=== PATIENT | female | born 1990 | race Caucasian/White ===

== ENCOUNTER 2021-11-21 09:24 | Emergency (ER) | payer SELFPAY ==
[2021-11-21 09:24] VITALS: BP 143/74; PULSE 64; RESP 16; TEMP 36.6; O2SAT 99; BMI 29.5
--- NOTE | 2021-11-21 10:12 | CT_ITS ---
STUDY: CT ABDOMEN AND PELVIS WITH CONTRAST REASON FOR EXAM: Female, 31 years old. Left lower quadrant abdominal pain. Constipation. RADIATION DOSAGE (If Supplied By Facility): CTDIvol = ( 11.09 ) mGy, DLP = ( 444.67 ) mGycm TECHNIQUE: Transaxial images were obtained from the dome of the diaphragm to the symphysis pubis without oral contrast. IV 75mL Isovue-370 was administered. Sagittal and coronal images were reconstructed. Individualized dose optimization techniques were used for this CT. COMPARISON: None. FINDINGS: The visualized lung bases are unremarkable. The visualized portions of the heart are within normal limits. Normal liver. Normal gallbladder and extrahepatic biliary system. Normal spleen. Normal pancreas. Normal bilateral adrenal glands. Normal right kidney. Normal left kidney. Normal visualized stomach. Normal small intestine. Normal colon. The appendix is visualized and appears normal. Normal abdominal aorta. Normal inferior vena cava. Normal retroperitoneum. Normal urinary bladder. Normal abdominal wall. Normal osseous structures. CT/Abdomen/Pelvis W IV Cont ONLY IMPRESSION: Normal enhanced CT of the abdomen and pelvis. Electronically Signed: Kwasi Silvestre MD at 12:11 EDT ,
--- NOTE | 2021-11-21 10:13 | ED.VIS.GI ---
HPI HPI - GI History of Present Illness Chief Complaint: Abd Pain Narrative Narrative: 31-year-old female presenting with left lower quadrant abdominal pain. She states this has been a persistent issue. Patient states that she was seen in [place] previously and had blood work which was normal. She had no imaging. She is supposed to follow-up with her primary care doctor which was given to her from the emergency room. She states that when she tried to follow-up he recommended going to the ER for a CAT scan of the abdomen pelvis. The patient states that they were sent to [place] emergency room for a second opinion. Patient also expresses that her PPI is not working. Protonix does not help with her acid reflux. She states that she has had dyspepsia. This is contributing to some nausea. Patient also reports that she is not having significant bowel movements as having small hard stools. PFSH PFSH Home Medications ondansetron 4 mg PO Q8H PRN #14 tab 11/21/21 [Rx Last Taken Unknown] sucralfate [Carafate] 10 ml PO BID #200 ml 11/21/21 [Rx Last Taken Unknown] Allergy/AdvReac Type Severity Reaction Status Date / Time Penicillins [PCN] Allergy Hives Verified 11/21/21 09:41 Surgical History no surgical history Social History Smoking Status: Unknown if ever smoked ROS ROS ED Constitutional Constitutional ED: Denies chills or fever(s) ENT ENT ED: Denies rhinorrhea or sore throat Cardiovascular Cardiovascular: Denies chest pain or palpitations Respiratory/Chest Respiratory/Chest: Denies dyspnea or sputum Gastrointestinal Gastrointestinal: Reports abdominal pain, constipation, nausea and vomiting; Denies diarrhea Genitourinary Genitourinary ED: Denies dysuria Musculoskeletal Musculoskeletal: Denies myalgias Integumentary Denies rash Neurologic Neurologic: Denies headache(s) Psychiatric Psychiatric: Denies anxiety or depression EXAM Physical Exam Const Vital Signs: 11/21/21 09:24 11/21/21 11:58 Temperature 97.8 F Temperature Source Temporal Pulse Rate 64 87 Respiratory Rate 16 16 Blood Pressure 143/74 H 138/79 H Blood Pressure Mean 97 98 Pulse Ox 99 99 Oxygen Delivery Method Room Air Room Air Positive well nourished General Appearance ED: NAD; Negative for pallor HEENT Reports moist mucous membranes normocephalic and atraumatic Eyes PERRL and EOMs intact bilaterally General Eye ED: Negative for pale conjunctiva or scleral icterus Neck supple Resp normal respiratory effort and clear to auscultation bilaterally Cardio regular rate and regular rhythm GI Palpation: soft and tender LLQ Back/Spine no CVA tenderness Neuro CN's II-XII intact bilaterally and moves all extremities Sensorium / Orientation: alert, oriented to person, oriented to place and oriented to time Psych mental status grossly normal Skin General Skin Exam: Negative for jaundice or pallor Lesions: no lesions Rashes: no rashes MDM MDM MDM Narrative Medical decision making narrative: HerRepeat blood work was done here today. I am unable to see the previous lab work however CBC and CMP are within normal limits. Lipase is also normal. Urinalysis negative for infection or occult blood. hCG negative. CT of the abdomen pelvis was performed with IV contrast and is negative for any acute findings. Patient is counseled of this. She requests tonics is not helping so we will start her on Carafate. She is given Zofran for home as well. She was given magnesium citrate in the ER to take when she gets home. Patient will given referral to Dr. Arredondo. Patient can return precautions and is stable for discharge at this time. Impression: 1. Nausea/vomiting 2. Constipation 3. GERD 4. Abdominal pain Lab Data Attestation: I reviewed the patient's lab results. Labs: Laboratory Results - last 24 hr 11/21/21 11/21/21 11/21/21 10:35 10:35 11:10 WBC 5.3 RBC 4.21 Hgb 12.7 Hct 37.5 MCV 89.1 MCH 30.2 MCHC 33.9 RDW Std Deviation 40.9 RDW Coeff of Jo Ann 12.5 Plt Count 221 MPV 10.6 Immature Gran % (Auto) 0.200 Neut % (Auto) 44.0 L Lymph % (Auto) 43.3 H [place] % (Auto) 11.3 H Eos % (Auto) 0.6 Baso % (Auto) 0.6 Absolute Neuts (auto) 2.3 Absolute Lymphs (auto) 2.30 Nucleated RBC % 0 Sodium 140 Potassium 3.6 Chloride 108 H Carbon Dioxide 25.0 Anion Gap 7 BUN 10 Creatinine 0.89 Estim Creat Clear Calc 76.46 Est GFR (MDRD) Af Amer 95 Est GFR (MDRD) Non-Af 79 BUN/Creatinine Ratio 11.2 Glucose 101 Calcium 9.0 Total Bilirubin 0.70 AST 11 L ALT 17 Alkaline Phosphatase 40 L Total Protein 7.1 Albumin 4.0 Globulin 3.1 Albumin/Globulin Ratio 1.3 Lipase 58 L Urine Color Yellow Urine Clarity Clear Urine pH 8.0 Ur Specific [place] 1.010 Urine Protein Negative Urine Glucose (UA) Normal Urine Ketones 15 H Urine Occult Blood Negative Urine Nitrite Negative Urine Bilirubin Negative Urine Urobilinogen Normal Ur Leukocyte Esterase Negative Urine RBC 0 SEEN Urine WBC 0 SEEN Ur Squamous Epith Cells 0 SEEN Urine Bacteria 0 SEEN Urine Mucus 0 SEEN Urine Test Negative Radiography Diagnostic Testing: Clinical Impression(s) from Imaging Studies Abdomen/Pelvis CT 11/21/21 10:12 IMPRESSION: Normal enhanced CT of the abdomen and pelvis. Electronically Signed: Kwasi Silvestre MD at 12:11 EDT Reading Location ID and State: [facility] / [place] , Service support , Discharge Plan Triage Chief Complaint: Abd Pain ED Provider: Vj Rick Dx/Rx/DC Orders Instructions: ED Abdominal Pain Unkn Cause Fem, ED GERD (Adult) Prescriptions: New sucralfate [Carafate] 100 mg/mL suspension 10 ml PO BID Qty: 200 RF: 0 ondansetron 4 mg tablet,disintegrating 4 mg PO Q8H PRN (Reason: nausea and vomiting) Qty: 14 RF: 0 Primary Care Provider: Donald Barlow Referrals: Donald Barlow DO [Primary Care Provider] - Disposition Disposition: Home, Self Care
[2021-11-21] MEDS: Ondansetron 4 MG/2 ML Vial IV (10:39)
[2021-11-21] MEDS: Morphine 4 MG/ML Syringe IV (10:39)
[2021-11-21 10:42] LABS: Absolute Neutrophil Count 2.3 X10^3/uL (2.0-7.7); Basophil# 0.03 X10^3/uL; Basophil% 0.6 % (0-1); Eosinophil# 0.03 X10^3/uL; Eosinophils% 0.6 % (0-5); Hematocrit 37.5 % (37-47); Hemoglobin 12.7 g/dL (12.0-15.0); Lymphocyte % 43.3 % (19-41); Mean Corp Hgb Conc 33.9 g/dL (32-36); Mean Corpuscular Hgb 30.2 pg (27.0-32.0); Mean Corpuscular Volume 89.1 fL (81-99); Mean Platelet Vol. 10.6 fl (6.2-12.0); Monocyte% 11.3 % (0-10); NRBC Flagged by Analyzer 0 % (0-5); Neutrophil # 2.34 X10^3/uL (2.7-7.7); Platelet Count 221 K/mm3 (150-450); RBC Distribution Width CV 12.5 % (11.6-14.6); RBC Distribution Width SD 40.9 fl (35.1-43.9); Red Blood Count 4.21 M/mm3 (4.2-5.4); White Blood Count 5.3 K/mm3 (4.4-11.0)
[2021-11-21 10:57] LABS: ALB/GLOB Ratio 1.3 RATIO (0.9-2.4); AST(SGOT) 11 U/L (15-37); Alanine Aminotransfer ALT/SGPT 17 U/L (13-56); Alkaline Phosphatase 40 U/L (45-117); Anion Gap 7 (5-15); BUN 10 mg/dL (7-18); BUN/Creat Ratio 11.2 RATIO (10-20); Chloride 108 mmol/L (98-107); Creatinine, Serum 0.89 mg/dL (0.55-1.02); EST Glomerular Filtration Rate 79 mL/min (>60); Est Glom Filt Rate - Afr Amer 95 mL/min (>60); Estimated Creatinine Clearance 76.46 ml/min; Globulin 3.1 g/dL (2.2-4.2); Glucose 101 mg/dL (74-106); Lipase 58 U/L (73-393); Potassium 3.6 mmol/L (3.5-5.1); Protein, Total 7.1 g/dL (6.4-8.2); Sodium Level 140 mmol/L (136-145)
[2021-11-21 11:19] LABS: Bacteria 0 SEEN /hpf (None Seen); Mucous, Urine 0 SEEN /hpf (<or=2+); Red Blood Cells-Urine 0 SEEN /hpf (0-5); Squamous Epithelial Cells - UA 0 SEEN /hpf (5-10); White Blood Cells 0 SEEN /hpf (0-5)
[2021-11-21 11:22] LABS: Color, Urine Yellow (Yellow); Glucose, Dipstick Normal (Normal); Ketone-Dipstick 15 mg/dl (Negative); Leukocyte Esterase-Dipstick Negative /ul (Negative); Nitrite-Dipstick Negative (Negative); Occult Blood-Urine Negative /ul (Negative); Protein-Dipstick Negative (Negative); Urine Bilirubin Dipstick Negative (Negative); Urine Clarity Clear (Clear); Urine Urobilinogen Normal (Normal)
[2021-11-21 11:41] LABS: Internal QC Validated? YES +Cl - CLEAR BKGD; Pregnancy, Urine Negative Negative
[2021-11-21 11:58] VITALS: BP 138/79; PULSE 87; RESP 16; O2SAT 99
[2021-11-21 13:30] VITALS: BP 130/84; PULSE 87; RESP 16; O2SAT 99
== END 2021-11-21 13:31 | disposition home or self-care (01) ==
PROVIDERS: Emergency Provider Student in an Organized Health Care Education/Training Program; PCP Family Medicine; Visit Provider Student in an Organized Health Care Education/Training Program
DX: R10.9 Unspecified abdominal pain (principal); K59.00 Constipation, unspecified; K21.9 Gastro-esophageal reflux disease without esophagitis; R11.2 Nausea with vomiting, unspecified
CPT/HCPCS: 74177; 80053; 81001; 81025; 83690; 85025; 96374; 96375; 99285; Q9967; A4216; J2405

== ENCOUNTER → 2021-12-26 | Outpatient (CLI) | payer OTHER, SELFPAY ==
[2021-12-26 17:15] LABS: Erythrocyte Sedimentation Rate 4 mm/hr (0-30)
[2021-12-26 17:46] LABS: CRP < 2.90 mg/L (0.0-3.0); LDH 162 U/L (84-246)
[2021-12-29 13:07] LABS: Anti-Centromere B Ab <0.2 AI (0.0-0.9); Anti-Chromatin <0.2 AI (0.0-0.9); Anti-Jo <0.2 AI (0.0-0.9); Anti-Scleroderma-70 AB <0.2 AI (0.0-0.9); RNP Ab 0.2 AI (0.0-0.9); SJOGREN'S Anti-SS-A test < 0.2 AI (0.0-0.9); SJOGREN'S Anti-SS-B test < 0.2 AI (0.0-0.9); Smith Ab <0.2 AI (0.0-0.9)
[2021-12-29 15:39] LABS: Anti-dsDNA Ab <1 IU/mL (0-9)
[2021-12-29 16:08] LABS: Endomysial Antibody IgA Negative (Negative)
[2021-12-29 17:19] LABS: Immunoglobulin A 102 mg/dL (87-352); t-Transglutaminase IgA <2 U/mL (0-3)
[2022-01-02 09:09] LABS: Cytoplasmic Ab (C-ANCA) <1:20 titer (Neg:<1:20); Immunoglobulin A 96 mg/dL (87-352); Immunoglobulin E 2 IU/mL (6-495); Immunoglobulin G 1076 mg/dL (586-1602)
[2022-01-03 15:38] LABS: Gastrin, Serum 42 pg/mL (0-115); Immunoglobulin M 89 mg/dL (26-217); Perinuclear Ab (P-ANCA) <1:20 titer (Neg:<1:20)
== END | disposition home or self-care (01) ==
PROVIDERS: PCP Family Medicine; Visit Provider Internal Medicine Gastroenterology
DX: R10.9 Unspecified abdominal pain (principal)
CPT/HCPCS: 36415; 82784; 82785; 82941; 83516; 83615; 85652; 86140; 86225; 86235; 86255; 86256

== ENCOUNTER → 2022-01-27 | Outpatient (CLI) | payer OTHER, SELFPAY ==
--- NOTE | 2022-01-27 12:47 | NM_ITS ---
CLINICAL: 31-year-old female with history of abdominal pain and chronic nausea. SEMI-SOLID PHASE 99m Tc SULFUR COLLOID GASTRIC EMPTYING STUDY COMPARISON: CT of the abdomen and pelvis report 11/21/2021 FINDINGS: The patient was administered 1.0 mCi of 99m Tc sulfur colloid mixed with oatmeal and consumed per os. Image acquisitions in the anterior projection were obtained for 60 minutes. There is prompt visualization of the stomach. There is no gastroesophageal reflux identified. First order kinetics are maintained throughout the duration of the acquisitions. The T ? emptying was calculated to be 43.57 minutes, (Normal: 12-56 minutes). NM/Gastric Emptying Study IMPRESSION: 1. NORMAL 99m Tc sulfur colloid semi-solid phase (oatmeal) gastric emptying imaging examination. A. There is normal and preserved semi-solid phase gastric emptying compared to normal controls with maintained first order kinetics throughout all components of the examination. (Pauline et al, J Nucl Med Tech 38: 186, 2010). Electronically Signed: Buck Donahue, at 16:30 EDT ,
== END | disposition home or self-care (01) ==
LOC: NM 12:45
PROVIDERS: PCP Family Medicine; Referring Provider Internal Medicine Gastroenterology; Visit Provider Internal Medicine Gastroenterology
DX: R11.0 Nausea (principal)
CPT/HCPCS: 78264; A9541

== ENCOUNTER 2022-05-12 11:26 | Day surgery (SDC) | payer OTHER, SELFPAY ==
[2022-05-12] VITALS (8 sets, daily range): BP systolic 93–123; BP diastolic 54–69; PULSE 51–78; RESP 15–16; TEMP 36.4–37.1; O2SAT 94–100; BMI 28.0
--- NOTE | 2022-05-12 11:57 | PCM.HP.BLA ---
History and Physical Date of Admission: 05/12/22 YOUSIF MADSEN, is a 31 F who presents to the office today for?Initial consult. Delores established with this clinic following ED presentation. [facility] ED presentation 11.21.21 with LLQ abdominal pain, nausea with emesis that is undigested food after many hours, dyspepsia/heartburn, small hard stools that alternate with postprandial urgent diarrhea without blood, mucous, oil. Imaging performed without acute findings; she was given Carafate, Zofran and magnesium citrate and discharged home. When she was younger she was diagnosed with GERD and started on PPI that caused her to have an increase in symptoms; famotidine BID OTC was helpful, but is no longer helpful. Sleeping with her head significantly elevated is helpful. Since ED visit she has been doing a low fat, low acid, low spice diet; this has been met with moderate success. Zofran has been effective and is being taken PRN, last needed over the weekend. Marijuana intake is 1-2 times a week, feels this helps with nausea. Home life is agreeable to her with limited stress. FH mother with metastatic ovarian cancer spreading to liver requiring surgical intervention. CT abd/pel 11.21.21 without acute or chronic findings. Exam Const General: cooperative and comfortable Nutritional Appearance: average body habitus and well nourished [facility] Head: normal to inspection Ears: hearing grossly normal bilaterally Nose: external nose normal Face and sinus: normal facial exam Mouth: oral mucosae normal Throat: posterior oropharynx normal Eyes General: appearance normal, both eyes and all related structures Neck Neck: normal visual inspection Chest Chest palpation & inspection: normal inspection of the chest and normal palpation of entire chest wall Resp Effort & Inspection: normal respiratory effort Auscultation: Bilateral: Clear to Auscultation Cardio Palpation: normal PMI Rate: regular rate Rhythm: regular rhythm GI Inspection: normal to inspection Auscultation: normal bowel sounds Percussion: normal to percussion Palpation: no hepatosplenomegaly Skin General: no rashes or lesions noted Neuro General: patient alert Extrem General: normal to inspection Psych Affect: normal affect Quality Reporting Tobacco Screening ([facility] 138) Smoking Status: Unknown if ever smoked Assessment and Plan Assessment and Plan (1) Abdominal pain: ?Status:?Acute ?Plan: We will perform a biochemical analysis to see if there is an inflammatory or autoimmune component to her abdominal pain.? The differential diagnosis at this time does include peptic ulcer disease, celiac disease, gastritis, H. pylori associated disease, atypical gastroesophageal reflux disease.? She will get an upper endoscopy to evaluate upper GI tract.? We will perform biopsy to evaluate her also for eosinophilic diseases (2) GERD (gastroesophageal reflux disease): ?Status:?Acute ?Plan: At this time we will continue famotidine based therapy until she is properly assessed with upper endoscopy. ? ? ? Orders: Orders CRP Today R10.9 - Unspecified abdominal pain ? LDH Today R10.9 - Unspecified abdominal pain ? Erythrocyte Sed Rate Today R10.9 - Unspecified abdominal pain ? PADMINI Comprehensive Panel Today R10.9 - Unspecified abdominal pain ? Calprotectin, Stool Today R10.9 - Unspecified abdominal pain ? Gastric Emptying Study Today R10.9 - Unspecified abdominal pain ? ANCA Today R10.9 - Unspecified abdominal pain ? Celiac Disease Profile Today R10.9 - Unspecified abdominal pain ? Immunoglobulin A Today R10.9 - Unspecified abdominal pain ? Immunoglobulin E Today R10.9 - Unspecified abdominal pain ? Immunoglobulin G Today R10.9 - Unspecified abdominal pain ? Immunoglobulin M Today R10.9 - Unspecified abdominal pain ? Pancreatic Elastase, Fecal Today R10.9 - Unspecified abdominal pain ? Miscellaneous Lab Procedure Today R10.9 - Unspecified abdominal pain ? Gastrin, Serum Today R10.9 - Unspecified abdominal pain ? 5-HIAA 24 HR UR Today R10.9 - Unspecified abdominal pain ? I have examined the patient and the H&P has been reviewed. There are no clinical changes since date of exam.
[2022-05-12 12:05] LABS: Internal QC Validated? YES +Cl - CLEAR BKGD; Pregnancy, Urine Negative Negative
[2022-05-12] MEDS: Lactated Ringers 1,000 ML 15 ML IV (12:30)
--- NOTE | 2022-05-12 12:30 | EGD_PTH ---
PATIENT: KELLEN MADSEN LOC: EN U#:[id number] AGE/SX: 31/F ROOM: RE05/12/[address]: Dr. Aman Arredondo DO : 1990 BED: DIS: 05/12/2022 SPEC #: [id number] RECD: 05/12/22 15:17 STATUS: [place] REQ #: [id number] KINJAL: 05/12/22 12:[address]: Aman Arredondo DEPT: SURGICAL PATHOLOGY RECD BY: Makenzie Ortiz ENTERED: 05/13/22 09:20 SP TYPE: EGD BIOPSY OT DR: Dr. Donald Barlow DO Tissues: A - Duodenum, NOS B - Gastric mucous membrane C - Esophagus, NOS Procedures: Special Stain Group II Surgery Specimen Level IV Alcian Blue/PAS (control) HEADER OPERATION: EGD with biopsy ([facility] [place] PRE-OP DIAGNOSIS: Abdominal pain, GERD TISSUE SUBMITTED: A ? Duodenum biopsy, B ? Antrum biopsy for H. pylori and path, C ? Distal esophagus biopsy MICROSCOPIC DIAGNOSIS A. Duodenum, biopsy: No pathologic change. B. Gastric antrum, biopsy: Chronic gastritis. Focal intestinal metaplasia. No evidence of dysplasia. See comment. C. Distal esophagus, biopsy: Gastroesophageal junction with chronic inflammation. No evidence of goblet cell metaplasia. See comment. AM:[place] 05/14/2022 COMMENT B. The results of immunohistochemistry for Helicobacter pylori will be reported separately ([id number]). C. Alcian blue/PAS stain with matched control supports the above diagnosis. MICROSCOPIC DESCRIPTION Slides are reviewed. GROSS DESCRIPTION A - Received in fixative is one container labeled with the patient's name and designated duodenum. The specimen consists of multiple irregular fragments of light zaldivar soft tissue that in aggregate measure 0.5 x 0.5 x 0.1 cm. The specimen is totally submitted in one cassette. B - Received in fixative is one container labeled with the patient's name and designated antrum biopsy. The specimen consists of multiple irregular fragments of light zaldivar soft tissue that in aggregate measure 0.6 x 0.6 x 0.1 cm. The specimen is totally submitted in one cassette. C - Received in fixative is one container labeled with the patient's name and designated distal esophagus. The specimen consists of two irregular fragments of light zaldivar soft tissue that in aggregate measure 0.7 x 0.5 x 0.1 cm. The specimen is totally submitted in one cassette. / AM:[place] 05/13/2022 TC:3 CPT: 87730 x3, 27697
--- NOTE | 2022-05-12 12:30 | IMM_PTH ---
PATIENT: KELLEN MADSEN LOC: EN U#:[id number] AGE/SX: 31/F ROOM: RE05/12/[address]: Dr. Aman Arredondo DO : 1990 BED: DIS: 05/12/2022 SPEC #: [id number] RECD: 05/13/22 09:24 STATUS: R[place] REQ #: [id number] KINJAL: 05/12/22 12:[address]: Aamn Arredondo DEPT: IMMUNOHISTOCHEMISTRY RECD BY: Deneen Brumfield ENTERED: 05/13/22 09:25 SP TYPE: IMMUNO OTHR DR: Dr. Donald Barlow DO Tissues: B - Stomach, NOS Procedures: H Pylori (initial) PHYSICIAN & INSTITUTION [place] [id number] SPECIMEN INFORMATION: Tissue Source: B - Antrum Clinical Info: Abdominal pain, GERD Specimen Number: [id number] CPT code: 86502 METHODOLOGY: Deparaffinized sections of prefer/formalin-fixed tissue or PAP/DQ stained slides are incubated with monoclonal/polyclonal antibodies/oligonucleotide probes. Localization is made via biotin free immunoperoxidase method. Appropriate controls are performed and reacted as expected. Results on target cell population are indicated in the following table: RESULTS: ANTIBODY / CLONE RESULT Block B H Pylori (polyclonal) negative These tests were developed and their performance characteristics determined by [facility]. They may not have been cleared or approved by the U.S. Food and Drug Administration. The FDA has determined that such clearance or approval is not necessary. The above immunohistochemical/dualISH markers are ordered and reviewed by the Pathologist. INTERPRETATION: B. Antrum, biopsy: Negative for Helicobacter pylori organisms. AM:[place] 05/14/2022
--- NOTE | 2022-05-12 13:05 | OP.CCLET_ITS ---
05/12/2022 Donald Barlow Re : Upper GI endoscopy procedure for Yoshi Castillo Dear [place] This procedure was performed on Thursday, May 12, 2022. My impressions and recommendations are as follows: Impressions : - LA Grade A reflux esophagitis. Biopsied. - Non-bleeding gastric ulcer with no stigmata of bleeding. Biopsied. - Erythematous mucosa in the pylorus. Biopsied. - Erythematous duodenopathy. Biopsied. Recommendations : - Discharge patient to home. - Resume previous diet. - Continue present medications. - Await pathology results. - Use sucralfate tablets 1 gram PO QID for 4 weeks. My findings are described in the full procedure note, which is enclosed. If I can be of further assistance, please feel free to contact me at . Sincerely, Aman Arredondo, 05/12/2022 1:04:54 PM This report has been signed electronically.
--- NOTE | 2022-05-12 13:05 | OP.EGD_ITS ---
Patient Name: Yoshi Castillo Procedure Date: 05/12/2022 12:31 PM Date of : 1990 Age: 31 Procedure: Upper GI endoscopy Indications: Abdominal pain in the left upper quadrant, Failure to respond to medical treatment Providers: mAan Arredondo DO Referring MD: Aman Arredondo DO Medicines: Monitored Anesthesia Care Patient Profile: This is a 31 year old female. Refer to note in patient chart for documentation of history and physical. Patient has symptoms of chronic abdominal cramping, acute left upper quadrant abdominal pain and acute epigastric abdominal pain. Complications: No immediate complications. Procedure: Pre-Anesthesia Assessment: - Prior to the procedure, a History and Physical was performed, and patient medications and allergies were reviewed. The patient is competent. The risks and benefits of the procedure and the sedation options and risks were discussed with the patient. All questions were answered and informed consent was obtained. Patient identification and proposed procedure were verified by the physician in the pre-procedure area. Mental Status Examination: alert and oriented. Airway Examination: normal oropharyngeal airway and neck mobility. Respiratory Examination: clear to auscultation. CV Examination: normal. Prophylactic Antibiotics: The patient does not require prophylactic antibiotics. Prior Anticoagulants: The patient has taken no previous anticoagulant or antiplatelet agents. ASA Grade Assessment: II - A patient with mild systemic disease. After reviewing the risks and benefits, the patient was deemed in satisfactory condition to undergo the procedure. The anesthesia plan was to use monitored anesthesia care (MAC). Immediately prior to administration of medications, the patient was re-assessed for adequacy to receive sedatives. The heart rate, respiratory rate, oxygen saturations, blood pressure, adequacy of pulmonary ventilation, and response to care were monitored throughout the procedure. The physical status of the patient was re-assessed after the procedure. After obtaining informed consent, the endoscope was passed under direct vision. Throughout the procedure, the patient's blood pressure, pulse, and oxygen saturations were monitored continuously. The gastroscope was introduced through the mouth, and advanced to the second part of duodenum. The upper GI endoscopy was accomplished with ease. The patient tolerated the procedure well. Scope In: 12:44:39 PM Scope Out: 12:52:02 PM Total Procedure Duration Time 0 hours 7 minutes 23 seconds Findings: LA Grade A (one or more mucosal breaks less than 5 mm, not extending between tops of 2 mucosal folds) esophagitis with no bleeding was found 36 to 38 cm from the incisors. Biopsies were taken with a cold forceps for histology. Verification of patient identification for the specimen was done. Estimated blood loss was minimal. One non-bleeding superficial gastric ulcer with no stigmata of bleeding was found in the gastric body. The lesion was 2 mm in largest dimension. Biopsies were taken with a cold forceps for histology. Verification of patient identification for the specimen was done. Estimated blood loss was minimal. Patchy mildly erythematous mucosa without bleeding was found at the pylorus. Biopsies were taken with a cold forceps for histology. Verification of patient identification for the specimen was done. Estimated blood loss was minimal. Patchy mildly erythematous mucosa without active bleeding and with no stigmata of bleeding was found in the first portion of the duodenum. Biopsies were taken with a cold forceps for histology. Verification of patient identification for the specimen was done. Estimated blood loss was minimal. Impression: - LA Grade A reflux esophagitis. Biopsied. - Non-bleeding gastric ulcer with no stigmata of bleeding. Biopsied. - Erythematous mucosa in the pylorus. Biopsied. - Erythematous duodenopathy. Biopsied. Recommendation: - Discharge patient to home. - Resume previous diet. - Continue present medications. - Await pathology results. - Use sucralfate tablets 1 gram PO QID for 4 weeks. Procedure Code(s): --- Professional --- 64496, Esophagogastroduodenoscopy, flexible, transoral; with biopsy, single or multiple CPT copyright 2017 [employer]. All rights reserved. The codes documented in this report are preliminary and upon automatic typewriter inspector review may be revised to meet current compliance requirements. Aman Arredondo DO 05/12/2022 1:04:54 PM This report has been signed electronically. Number of Addenda: 0 Note Initiated On: 05/12/2022 12:31 PM
== END 2022-05-12 13:44 | disposition home or self-care (01) ==
LOC: EN 11:30 → AC 11:31
PROVIDERS: Anesthesiology; PCP Family Medicine; Referring Provider Family Medicine; Visit Provider Internal Medicine Gastroenterology
PROC: 0DJ08ZZ Inspection of Upper Intestinal Tract, Via Natural or Artificial Opening Endoscopic (ICD-10-PCS; CPT 43235; principal; 2022-05-12 12:25)
DX: K25.9 Gastric ulcer, unspecified as acute or chronic, without hemorrhage or perforation (principal); K21.9 Gastro-esophageal reflux disease without esophagitis; K21.00 Gastro-esophageal reflux disease with esophagitis, without bleeding; K29.50 Unspecified chronic gastritis without bleeding
CPT/HCPCS: 43239; 81025; 88305; 88313; 88342; J7120; J2405

== ENCOUNTER → 2022-07-20 | Outpatient (CLI) | payer OTHER, SELFPAY ==
[2022-07-22 17:32] LABS: 5-HIAA, 24UR 4.3 mg/24 hr (0.0-14.9); 5-HIAA, UR 1.8 mg/L (Undefined)
[2022-07-22 22:18] LABS: Pancreatic Elastase, Fecal 330 (>200)
[2022-07-24 20:32] LABS: Calprotectin, Stool <16 ug/g (0-120)
== END | disposition home or self-care (01) ==
LOC: LAB 08:06
PROVIDERS: PCP Family Medicine; Referring Provider Internal Medicine Gastroenterology; Visit Provider Internal Medicine Gastroenterology
DX: R10.9 Unspecified abdominal pain (principal)
CPT/HCPCS: 81050; 82653; 83497; 83993

== ENCOUNTER 2023-07-13 07:16 | Emergency (ER) | payer BC, SELFPAY ==
[2023-07-13 07:16] VITALS: BP 141/76; PULSE 95; RESP 14; TEMP 36.3; O2SAT 100; BMI 28.6
--- NOTE | 2023-07-13 07:59 | RAD_ITS ---
INDICATION: injury EXAMINATION/TECHNIQUE: X-RAY - XR Spine Lumbar 2 or 3 Views COMPARISON: Prior study dated: November 21, 2021 CT of the abdomen and pelvis. FINDINGS: VERTEBRAE: Preserved vertebral body height. No fracture. No spondylolisthesis. Preservation of the normal lumbar lordosis. No significant facet arthropathy. DISCS: Disc spaces are maintained. INCLUDED ABDOMEN: Included bowel gas pattern is non-obstructive. RAD/Lumbar Spine 2 or 3 Views IMPRESSION: No evidence of lumbar spinal fracture or spondylolisthesis. Electronically Signed: Shira Snow MD at 8:29 EST ,
--- NOTE | 2023-07-13 08:04 | ED.VIS.BACK ---
HPI History of Present Illness Chief Complaint: Back Informant: patient Narrative Narrative: Worsening left lower back pain over the last 4 days. Initial fall while fishing 10 days ago [place] had slight pain. 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 Using ibuprofen last dose yesterday. No history of similar. No loss of bowel or bladder control. No fevers. No recent illness. Denies IV drug history. Allergies to penicillin. Prior similar symptoms: No PFSH PFSH Medical History Anxiety Back pain Burn Chest pain Former smoker Gastric reflux History of echocardiogram History of irregular heartbeat Hypotension Leg cramps Marijuana use Restless legs Wears contact lenses Home Medications famotidine 10 mg tablet 10 mg PO BID 05/11/22 [History Last Taken Unknown] ondansetron 4 mg disintegrating tablet 4 mg PO Q8H PRN nausea and vomiting #30 tabs 05/15/22 [Rx Last Taken Unknown] sucralfate 1 gram tablet 1 g PO Q6H 30 days #120 tabs 05/13/23 [Rx Last Taken Unknown] gabapentin 300 mg capsule 300 mg PO QHS #30 caps 07/13/23 [Rx Last Taken Unknown] ibuprofen 600 mg tablet 600 mg PO Q6H PRN PRN pain #20 TABLETS 07/13/23 [Rx Last Taken Unknown] prednisone 20 mg tablet 40 mg (2 x 20 mg) PO DAILY #12 TABLETS 07/13/23 [Rx Last Taken Unknown] Allergy/AdvReac Type Severity Reaction Status Date / Time Penicillins [PCN] Allergy Hives Verified 07/13/23 07:16 Surgical History (Updated 05/11/22 @ 11:15 by Leeann Nunez) Hx of arthroscopy of left knee Social History Smoking Status: Former smoker ROS ROS ED Constitutional Constitutional ED: Denies chills, fever(s) or sweats Eyes Eyes: Denies change in vision ENT ENT ED: Denies dysphagia or sore throat Cardiovascular Cardiovascular: Denies chest pain, leg edema, palpitations or racing heartbeat Respiratory/Chest Respiratory/Chest: Denies cough, dyspnea or dyspnea on exertion Gastrointestinal Gastrointestinal: Denies abdominal pain, diarrhea, nausea or vomiting Genitourinary Genitourinary ED: Denies dysuria, hematuria or urinary frequency Musculoskeletal Musculoskeletal: Reports back pain; Denies extremity pain or neck pain Integumentary Denies rash or wounds Neurologic Neurologic: Reports paresthesias; Denies headache(s) or weakness EXAM Physical Exam Const Vital Signs: 07/13/23 07:16 07/13/23 09:10 Temperature 97.3 F L Temperature Source Temporal Pulse Rate 95 62 Respiratory Rate 14 15 Blood Pressure 141/76 H 124/77 H Blood Pressure Mean 97 92 Pulse Ox 100 98 Oxygen Delivery Method Room Air Positive well nourished and well developed General Appearance ED: well developed and NAD HEENT Reports moist mucous membranes normocephalic and atraumatic Eyes PERRL, EOMs intact bilaterally and conjunctivae normal General Eye ED: Yes normal appearance of both eyes Neck no lymphadenopathy and supple General: Negative for tenderness Chest Wall Chest: Negative for tenderness Resp normal respiratory effort and normal air movement Effort and Inspection: symmetric chest movement; Negative for respiratory distress Cardio regular rate, regular rhythm and no murmurs Peripheral Pulses: pulses 2+ throughout GI normal to inspection, nondistended, normoactive bowel sounds and non-tender Palpation: Negative for guarding or rebound tenderness present Back/Spine no CVA tenderness and no thoracic nor lumbar tenderness Back/Spine Narrative: Patient initially laying down able to sit up in bed with no discomfort. Straight leg test negative bilaterally. 1+ patellar reflex bilaterally. Mild tenderness palpation left paralumbar. Extremity normal to inspection General Extremety ED: Negative for edema or tenderness General Extremity: Negative for edema Neuro oriented x3 and no sensory deficits noted Sensorium / Orientation: awake and alert Skin no rashes or lesions noted and no wounds MDM MDM MDM Narrative Medical decision making narrative: Interventions / MDM: Differential diagnosis: Sciatica Diagnosis considered but do not suspect: Fracture however x-ray negative. No cauda equina symptoms. My EKG interpretation: N/A Imaging independently reviewed and interpreted by myself: Spine 2 views: No fracture, normal lumbar spacing. External documents reviewed: N/A Test considered but not ordered:N/A ED course: Patient with sciatica symptoms. No cauda equina symptoms. She did have a fall initially therefore x-rays were ordered. She is ordered for Motrin prednisone and started on gabapentin. X-ray negative. She reassured on findings. She is able to ambulate. Prescriptions to help with symptom control and discussed close follow-up with her PCP for further treatment options if needed. Work restrictions were given. All questions were answered. Re-evaluation: stable Disposition discussed with patient/family/significant other: Patient Case discussed with consulting clinician: N/A This note was generated with [employer] dictation software. It may contain incorrect words, spelling, and punctuation that were not noted in checking the note before signing. Radiography Diagnostic Testing: Clinical Impression(s) from Imaging Studies Lumbar Spine X-Ray 07/13/23 07:59 IMPRESSION: No evidence of lumbar spinal fracture or spondylolisthesis. Electronically Signed: Shira Snow MD at 8:29 EST , Discharge Plan Triage Chief Complaint: Back ED Provider: Kip Rainey Dx/Rx/DC Orders Clinical Impression: Sciatica of left side, Back pain Instructions: ED Sciatica Prescriptions: New ibuprofen 600 mg tablet 600 mg PO Q6H PRN PRN (Reason: pain) Qty: 20 0RF gabapentin 300 mg capsule 300 mg PO QHS Qty: 30 0RF prednisone 20 mg tablet 40 mg PO DAILY Qty: 12 0RF Rx Instructions: Next dose 07/14/2023 No Action famotidine 10 mg Tablet 10 mg PO BID ondansetron 4 mg tablet,disintegrating 4 mg PO Q8H PRN (Reason: nausea and vomiting) Qty: 30 2RF sucralfate 1 gram tablet 1 g PO Q6H 30 Days Qty: 120 2RF Stand Alone Forms: ED Work / School Excuse Primary Care Provider: Donald Barlow Referrals: Donald Barlow DO [Primary Care Provider] - 1 Week Activity Restrictions/Additional Instructions: Lumbar x-ray negative. Take medications as prescribed. Follow-up with your doctor for reevaluation further treatment options. Disposition Disposition: Home, Self Care Discharge Date/Time: 07/13/23 09:12
[2023-07-13] MEDS: predniSONE 20 MG Tablet 60 MG PO (08:19)
[2023-07-13] MEDS: Gabapentin 300 MG Capsule PO (08:19)
[2023-07-13] MEDS: Ibuprofen 600 MG Tablet PO (08:19)
--- OUTSIDE RECORDS SUMMARY | 2023-07-13 08:49 | XMS RPT_ITS | CCD ---
Author Name Unknown Address [address] [place] [address] Organization [facility] Care Team Providers Care Steno Typist Name Role Phone PHYSICIAN, NONE Primary Care Physician Unavailab le MAIRA DO, DR CHAZ Romo Primary Care Physician [phone] MEG RAIN Attending Unavailable PHYSICIAN, NONE Primary Care Unavailable PHYSICIAN, NONE Primary Care Unavailable ANITA RAMOS MD Attending Unavailable MAIRA DO, DR. CHAZ Romo Primary Care Unavailab le MAIRA DO, DR. CHAZ Romo Attending Unavailab le MAIRA DO, DR. CHAZ Romo Primary Care Unavailab le MAIRA DO, DR. CHAZ Romo Attending Unavailab gisela VERMA MD, JOSE Consulting Unavailable SHARAD CELIS, MIGUEL Jc Attending Unavailyolande e CHELA LOYOLA, МАРИЯ Admitting Unavailable PHYSICIAN, NONE Primary Care Unavailable GEORGIE CELIS, MELYSSA Romo Consulting Unavailable BOBO CELIS, SHELLY Rios Attending Unavailable MAIRA DO, DR. CHAZ Romo Primary Care Unavailab le MAIRA DO, DR CHAZ Romo Primary Care Physician [phone] Allergies Allergy Classification Reported Allergen(s) Allergy Type Date of Onset Reaction(s) Facility (6 sources) Penicillin; Translations: [penicillins] Drug Allergy [facility] Medications Current Medications Medication Drug Class(es) Dates Sig (Normalized) Sig (Original) cephalexin 500 mg oral tablet (1 source) Cephalosporin Antibacterial Start: 12-31-2021 End: 01-07-2022 cephalexin 500 mg oral tablet Dose : 500 mg = 1 tab(s), Oral, QID, X 7 day(s), # 28 tab(s), 0 Refill(s), 01/07/22 14:57:00 EDT, 75 Start Date: 12/31/21 Stop Date: 01/07/22 Status: Ordered famotidine 10 mg oral tablet (2 sources) Histamine-2 Receptor Antagonist Start: 03-05-2022 famotidine 10 mg oral tablet Dose : 10 mg = 1 tab(s), Oral, BID, 0 Refill(s) Start Date: 03/05/22 Status: Ordered ondansetron 4 mg disintegrating oral tablet (1 source) Serotonin-3 Receptor Antagonist Start: 11-16-2021 End: 11-19-2021 ondansetron 4 mg oral tablet, disintegrating Dose : 4 mg = 1 tab(s), Oral, q6h, X 3 day(s), # 12 tab(s), 0 Refill(s), 11/19/21 21:56:00 EDT Start Date: 11/16/21 Stop Date: 11/19/21 Status: Ordered Problems Active Problems Problem Classification Problem Date Documented Date Episodic/Chronic Cardiac dysrhythmias (3 sources) Sinus bradycardia; Translations: [Bradycardia, unspecified] Onset: 02-25-2022 Episodic Diseases of white blood cells (1 source) Leukopenia; Translations: [Decreased white blood cell count, unspecified] Chronic Esophageal disorders (6 sources) Gastroesophageal reflux disease 12-17-2015 Chronic Nonspecific chest pain (1 source) Chest pain; Translations: [Chest pain, unspecified] Episodic Other upper respiratory disease (6 sources) Epistaxis 01-15-2016 Episodic Past or Other Problems Problem Classification Problem Date Documented Da te Episodic/Chronic Viral infection (1 source) Disease caused by 2019-nCoV; Translations: [COVID-19] Results Test Name Value Interpretation Reference Range Facil ity Vital Signs Date Time Vital Sign Value Performing Clinician Angel kennedy 02-26-2022 10:31-0400 Body temperature 97.88 [degF] МАРИЯ [employer] [facility] 02-26-2022 10:31-0400 Diastolic blood pressure 59 mm[Hg] [facility] 02-26-2022 10:31-0400 Heart rate 54 /min [facility] [address] [place] [address] 02-26-2022 10:31-0400 Mean blood pressure 74 mm[Hg] МАРИЯ PLUNK DO [address] [place] [address] 02-26-2022 10:31-0400 Respiratory rate 14 /min МАРИЯ PLUNK DO [address] [place] [address] 02-26-2022 10:31-0400 Systolic blood pressure 105 mm[Hg] МАРИЯ PLUNK DO [address] [place] [address] 02-26-2022 06:57-0400 Body temperature 97.88 [degF] МАРИЯ PLUNK DO [address] [place] [address] 02-26-2022 06:57-0400 Diastolic blood pressure 68 mm[Hg] МАРИЯ PLUNK DO [address] [place] [address] 02-26-2022 06:57-0400 Heart rate 48 /min МАРИЯ PLUNK DO [address] [place] [address] 02-26-2022 06:57-0400 Mean blood pressure 83 mm[Hg] МАРИЯ PLUNK DO [address] [place] [address] 02-26-2022 06:57-0400 Respiratory rate 16 /min МАРИЯ PLUNK DO [address] [place] [address] 02-26-2022 06:57-0400 Systolic blood pressure 112 mm[Hg] МАРИЯ PLUNK DO [address] [place] [address] 02-26-2022 03:40-0400 Body temperature 98.42 [degF] МАРИЯ PLUNK DO [address] [place] [address] 02-26-2022 03:40-0400 Diastolic blood pressure 61 mm[Hg] МАРИЯ PLUNK DO [address] [place] [address] 02-26-2022 03:40-0400 Heart rate 42 /min МАРИЯ PLUNK DO [address] [place] [address] 02-26-2022 03:40-0400 Respiratory rate 16 /min МАРИЯ PLUNK DO [address] [place] [address] 02-26-2022 03:40-0400 Systolic blood pressure 107 mm[Hg] МАРИЯ PLUNK DO [facility] 02-25-2022 20:00-0400 Mean blood pressure 81 mm[Hg] МАРИЯ PLUNK DO [facility] 02-25-2022 19:32-0400 Body height 160 cm МАРИЯ PLUNK DO [facility] 02-25-2022 19:32-0400 Body weight 67.3 kg МАРИЯ PLUNK DO [facility] 02-25-2022 19:32-0400 Body weight 26.29 kg/m2 МАРИЯ PLUNK DO [facility] 02-25-2022 14:39-0400 Heart rate 42 /min SHELLY CHAPMAN MD [facility] 02-25-2022 12:27-0400 Diastolic blood pressure 73 mm[Hg] SHELLY CHAPMAN MD [facility] 02-25-2022 12:27-0400 Heart rate 44 /min SHELLY CHAPMAN MD [facility] 02-25-2022 12:27-0400 Systolic blood pressure 105 mm[Hg] SHELLY CHAPMAN MD [facility] 02-25-2022 10:23-0400 Body height 157.5 cm SHELLY CHAPMAN MD [facility] 02-25-2022 10:23-0400 Body temperature 97.88 [degF] SHELLY CHAPMAN MD [facility] 02-25-2022 10:23-0400 Body weight 71.7 kg SHELLY CHAPMAN MD [facility] 02-25-2022 10:23-0400 Diastolic blood pressure 72 mm[Hg] SHELLY CHAPMAN MD [facility] 02-25-2022 10:23-0400 Heart rate 53 /min SHELLY CHAPMAN MD [facility] 02-25-2022 10:23-0400 Respiratory rate 20 /min SHELLY CHAPMAN MD [facility] 02-25-2022 10:23-0400 Systolic blood pressure 137 mm[Hg] SHELLY CHAPMAN MD [facility] 12-31-2021 13:52-0400 Body temperature 98.6 [degF] MEG DURESKA DO [facility] 12-31-2021 13:52-0400 Diastolic blood pressure 59 mm[Hg] MEG DURESKA DO [facility] 12-31-2021 13:52-0400 Heart rate 63 /min MEG DURESKA DO [facility] 12-31-2021 13:52-0400 Respiratory rate 16 /min MEG DURESKA DO [facility] 12-31-2021 13:52-0400 Systolic blood pressure 100 mm[Hg] MEG DURESKA DO [facility] 11-16-2021 22:09-0400 Diastolic blood pressure 63 mm[Hg] ANITA RAMOS MD [facility] 11-16-2021 22:09-0400 Heart rate 60 /min ANITA RAMOS MD [facility] 11-16-2021 22:09-0400 Respiratory rate 18 /min ANITA RAMOS MD [facility] 11-16-2021 22:09-0400 Systolic blood pressure 100 mm[Hg] ANITA RAMOS MD [facility] 11-16-2021 20:31-0400 Body temperature 98.24 [degF] ANITA RAMOS MD [facility] 11-16-2021 20:31-0400 Diastolic blood pressure 88 mm[Hg] ANITA RAMOS MD [facility] 11-16-2021 20:31-0400 Heart rate 73 /min ANITA RAMOS MD [facility] 11-16-2021 20:31-0400 Respiratory rate 16 /min ANITA RAMSO MD [facility] 11-16-2021 20:31-0400 Systolic blood pressure 147 mm[Hg] ANITA RAMOS MD [facility] Encounters Encounter Date Encounter Type Care Provider Facility Start: 03-31-2022 End: 04-01-[address] CHAZ RAO DO Facility:B Start: 03-31-2022 End: 03-31-[address] CHAZ RAO DO [facility] Start: 03-10-2022 End: 03-11-[address] CHAZ RAO DO Facility:[facility] Start: 03-10-2022 End: 03-10-[address] CHAZ RAO DO [facility] Start: 02-25-2022 End: 02-26-2022 Evaluation and management of inpatient JOSE VERMA MD Facility:A Start: 02-25-2022 End: 02-26-2022 Evaluation and management of inpatient МАРИЯ YORK DO [facility] Start: 02-25-2022 End: 02-25-2022 Emergency department patient visit SHELLY CHAPMAN MD Facility:[facility] Start: 02-25-2022 End: 02-25-2022 Emergency department patient visit SHELLY CHAPMAN MD [facility] Start: 12-31-2021 End: 12-31-2021 Emergency department patient visit MEG RAIN Facility:B Start: 12-31-2021 End: 12-31-2021 Emergency department patient visit MEG RAIN DO [facility] Start: 11-16-2021 End: 11-17-2021 Emergency department patient visit NONE PHYSICIAN Facility:B Start: 11-16-2021 End: 11-16-2021 Emergency department patient visit ANITA RAMOS MD [facility] Procedures Date Procedure Procedure Detail Performing Clinician Knee region structure (body structure) ANITA RAMOS MD Immunizations Immunization Date Immunization Notes Care Provider Fa cility 12-31-2021 tetanus toxoid, redu yue diphtheria toxoid, and acellular pertussis vaccine, adsorbed MEG RAIN DO [facility] Payers Date Payer Category Payer Unknown [id number] 2021 Unknown [id number] 2021 Self-pay 1991 Unknown [id number] 2.16.8 [id number] 1991 Unknown [id number] 2.16.8 [id number] 1991 Unknown [id number] 2.16.8 [id number] 1991 Unknown [id number] 2.16.8 [id number] 1991 Unknown [id number] 2.16.8 [id number] 1991 Unknown [id number] 2.16.8 [id number] Social History Date Type Detail Facility Tobacco smoking status Smokes to bacco daily (finding) [facility] Sex Assigned At Sex [facility] Start: 12-31-2021 Tobacco smoking status Never s moked tobacco (finding) [facility] Start: 03-05-2022 Tobacco smoking status Ex-smoker (fi nding) [facility] Functional Status Date Assessment Result Facility 02-26-2022 Functional Status Room check performed [facility] 02-26-2022 Functional Status [facility] 02-26-2022 Functional Status [facility] 02-26-2022 Functional Status [facility] 02-25-2022 Functional Status [facility] 12-31-2021 Functional Status Standard Safet y ID band on, Allergy Band on, Call device within reach, Bed in low position, Wheels locked, Upper/Half-Length side-rails up, Bedside Cart Locked, Safety level maintained [facility] 11-16-2021 Functional Status [facility] 11-16-2021 Functional Status [facility] Mental Status Date Assessment Result Facility 02-26-2022 Mental Status Orientation Oriented x 4 [facility] 02-25-2022 Mental Status [facility] 12-31-2021 Mental Status Orientation Oriented x 4 [facility] 12-31-2021 Mental Status [facility] 11-16-2021 Mental Status [facility] 11-16-2021 Mental Status [facility] Clinical Notes 11-16-2021 to 02-26-2022 Note Date & Type Note Facility 02-26-2022 Cardiology Consult note Date of Service 02/26/2022 Reason for Consultation Chest pain, bradycardia Referring Physician Dr. Briggs History of Present Illness Patient is a 31-year-old female with past medical history of former tobacco use who presented with generalized weakness, shortness of breath, and chest discomfort. She came to the emergency department where she was noted to be COVID-positive. EKG showed sinus bradycardia and nonischemic, troponin negative x4, BNP normal, D-dimer normal. She is having a mild chest tightness across her anterior chest wall. It is nonradiating, no exacerbating or alleviating factors. She has had that only since her COVID infection. Patient is a former smoker who quit 2 to 3 years ago after smoking for about 10 years. She smokes occasional marijuana and denies alcohol use. She has family history of heart attacks in her father when he was in his 50s. Review of Systems Constitutional: Positive malaise, fatigue Head/Neck: No neck pain, stiffness Eyes: No changes in vision, loss of vision, blurred vision, double vision Cardiac: Mild chest tightness as described above, no palpitations, no leg swelling Lungs: No cough, wheezing, dyspnea, sputum production Abdomen: No abdominal pain, nausea, vomiting, constipation, diarrhea, vomiting, hematochezia, hematemesis Genitourinary: No dysuria, frequency, urgency, malodorous urine, hematuria Musculoskeletal: No joint pain, joint swelling, muscle aches, muscle cramps Skin: No rash, lesions, easy bruising, itching Neurological: No headaches, dizziness, weakness, loss of consciousness, confusion Psychiatric: No sleep disturbances, anxiety, depression, suicidal ideations, homicidal ideations Physical Exam Vitals and Measurements T: 36.6 C (Oral) TMIN: 36.5 C (Oral) TMAX: 36.9 C (Oral) HR: 54(Monitored) RR: 14 BP: 105/59 SpO2: 100% HT: 160.0 cm WT: 67.3 kg BMI: 26.29 Weight Dosing Weight: 67.3 kg (02/25/22) Constitutional: No acute distress, AOx4 Head: Normocephalic, nontraumatic Eyes: PERRLA, EOMI, no scleral icterus ENT: Oropharynx clear without erythema, exudates, lesions. Nares clear without discharge Neck: No JVD, no HJR. Soft, supple, normal ROM Cardiac: Bradycardic, regular rhythm Lungs: CTABL, no rales, wheezes, or rhonchi. No accessory muscle use. No labored breathing Abdomen: Soft, nontender, nondistended, normoactive bowel tones, no hepatosplenomegaly Genitourinary: No suprapubic tenderness to palpation Musculoskeletal: No lower extremity edema, ROM intact x4 Skin: Warm, dry, no lesions, no erythema Neurological: Nonfocal Psychiatric: Mood, insight, judgement normal Lab Results 02/26 04:46 WBC: 4.6 Hgb: 13.2 Hct: 39.7 Platelet: 147 L Neutrophil %: 34.0 L Glucose Level: 94 Sodium Level: 141 Potassium Level: 3.4 L BUN: 11.0 Creatinine Lvl (s): 0.72 02/25 20:41 WBC: 4.1 L Hgb: 13.5 Hct: 40.9 Platelet: 145 L Neutrophil %: 55.6 Glucose Level: 110 Sodium Level: 146 H Potassium Level: 3.2 L BUN: 8.0 Creatinine Lvl (s): 0.69 EKG EC02/26/22: Sinus bradycardia...rate< 50 Probable left atrial enlargement...P >50mS, <-0.10mV V1 Low voltage, precordial leads...precordial leads <1.0mV Electronic Signature: MARYLOU BARAJAS MD 02/26/2022 08:08:57 Assessment/Plan 1. COVID-19 2. Atypical chest pain 3. Asymptomatic sinus bradycardia Plan: Patient has mild, atypical chest tightness in the setting of COVID-19. While she does have some risk factors including family history and former tobacco use, her symptoms are not suggestive of critical coronary artery disease. She is a low pretest probability individual with 4 negative troponin which are very reassuring. This bodes well for her, with very high negative predictive value of future cardiac events. She has been also noted to have a mild sinus bradycardia which is asymptomatic and likely related to her COVID infection. No further ischemic evaluation warranted. Echo is ordered but should not hold up discharge plan is otherwise to send her home. She can have this done as outpatient and follow with cardiology office. Remainder issues per primary team. We will sign off at this time. Plan discussed with attending physician. Problem List/Past Medical History Ongoing GERD (gastroesophageal reflux disease) Nosebleed Historical No qualifying data Procedure/Surgical History Knee Medications Inpatient albuterol HFA MDI (90 mcg/inh) R/O COVID19 inhalation aerosol, 180 mcg= 2 puff(s), Inhalation, q4hRT Lovenox, 40 mg= 0.4 mL, Subcutaneous, qDay melatonin, 3 mg= 1 tab(s), Oral, qHS, PRN melatonin, 3 mg= 1 tab(s), Oral, qHS, PRN Miralax Powder Packet, 17 gram(s)= 15 mL, Oral, qDay, PRN Percocet 325/5, 1 tab(s), Oral, q4h, PRN Percocet 325/5, 2 tab(s), Oral, q4h, PRN Phenergan, 25 mg= 1 tab(s), Oral, q6h, PRN Tylenol, 650 mg= 2 tab(s), Oral, q4h, PRN Zofran, 4 mg= 2 mL, IV Push, q4h, PRN Home No active home medications Allergies penicillin Social History Smoking Status - 12/05/2016 Current every day smoker Alcohol Use: Never., 12/31/2021 Substance Abuse Use: Current. Type: Marijuana. Frequency: 3-5 times per week., 12/31/2021 Tobacco Nicotine Use: Never (less than 100 in lifetime)., 12/31/2021 Family History Cancer: Mother. Immunizations tetanus/diphth/pertuss (Tdap) adult/adol: 0.5 mL (12/31/21) Digitally Signed by JOSE VERMA MD on 02/26/2022 03:50 PM [facility] 02-26-2022 Hospital Discharge instructions Patient Education 02/26/2022 16:52:47 Bradycardia, Adult Bradycardia, Adult Bradycardia is a faqfse-lwmy-fxkodn heartbeat. A normal resting heart rate for an adult ranges from 60 to 100 beats per minute. With bradycardia, the resting heart rate is less than 60 beats per minute. Bradycardia can prevent enough oxygen from reaching certain areas of your body when you are active. It can be serious if it keeps enough oxygen from reaching your brain and other parts of your body. Bradycardia is not a problem for everyone. For some healthy adults, a slow resting heart rate is normal. What are the causes? This condition may be caused by: A problem with the heart, including: ?A problem with the heart's electrical system, such as a heart block. With a heart block, electrical signals between the chambers of the heart are partially or completely blocked, so they are not able to work as they should. ?A problem with the heart's natural pacemaker (sinus node). ?Heart disease. ?A heart attack. ?Heart damage. ?Lyme disease. ?A heart infection. ?A heart condition that is present at (congenital heart defect). Certain medicines that treat heart conditions. Certain conditions, such as hypothyroidism and obstructive sleep apnea. Problems with the balance of chemicals and other substances, like potassium, in the blood. Trauma. Radiation therapy. What increases the risk? You are more likely to develop this condition if you: Are age 65 or older. Have high blood pressure (hypertension), high cholesterol (hyperlipidemia), or diabetes. Drink heavily, use tobacco or nicotine products, or use drugs. What are the signs or symptoms? Symptoms of this condition include: Light-headedness. Feeling faint or fainting. Fatigue and weakness. Trouble with activity or exercise. Shortness of breath. Chest pain (angina). Drowsiness. Confusion. Dizziness. How is this diagnosed? This condition may be diagnosed based on: Your symptoms. Your medical history. A physical exam. During the exam, your health care provider will listen to your heartbeat and check your pulse. To confirm the diagnosis, your health care provider may order tests, such as: Blood tests. An electrocardiogram (ECG). This test records the heart's electrical activity. The test can show how fast your heart is beating and whether the heartbeat is steady. A test in which you wear a portable device (event recorder or Holter monitor) to record your heart's electrical activity while you go about your day. An exercise test. How is this treated? Treatment for this condition depends on the cause of the condition and how severe your symptoms are. Treatment may involve: Treatment of the underlying condition. Changing your medicines or how much medicine you take. Having a small, battery-operated device called a pacemaker implanted under the skin. When bradycardia occurs, this device can be used to increase your heart rate and help your heart beat in a regular rhythm. Follow these instructions at home: Lifestyle Manage any health conditions that contribute to bradycardia as told by your health care provider. Follow a heart-healthy diet. A sports nutritionist (dietitian) can help educate you about healthy food options and changes. Follow an exercise program that is approved by your health care provider. Maintain a healthy weight. Try to reduce or manage your stress, such as with yoga or meditation. If you need help reducing stress, ask your health care provider. Do not use any products that contain nicotine or tobacco, such as cigarettes, e-cigarettes, and chewing tobacco. If you need help quitting, ask your health care provider. Do not use illegal drugs. Limit alcohol intake to no more than 1 drink a day for non women and 2 drinks a day for men. Be aware of how much alcohol is in your drink. In the [place] one drink equals one 12 oz bottle of beer (355 mL), one 5 oz glass of wine (148 mL), or one 1 oz glass of hard liquor (44 mL). General instructions Take qwxf-lse-qseoswx and prescription medicines only as told by your health care provider. Keep all follow-up visits as told by your health care provider. This is important. How is this prevented? In some cases, bradycardia may be prevented by: Treating underlying medical problems. Stopping behaviors or medicines that can trigger the condition. Contact a health care provider if you: Feel light-headed or dizzy. Almost faint. Feel weak or are easily fatigued during physical activity. Experience confusion or have memory problems. Get help right away if: You faint. You have: ?An irregular heartbeat (palpitations). ?Chest pain. ?Trouble breathing. Summary Bradycardia is a ptwpyz-ofgs-qcfolb heartbeat. With bradycardia, the resting heart rate is less than 60 beats per minute. Treatment for this condition depends on the cause. Manage any health conditions that contribute to bradycardia as told by your health care provider. Do not use any products that contain nicotine or tobacco, such as cigarettes, e-cigarettes, and chewing tobacco, and limit alcohol intake. Keep all follow-up visits as told by your health care provider. This is important. This information is not intended to replace advice given to you by your health care provider. Make sure you discuss any questions you have with your health care provider. Document Released: 03/13/2003 Document Revised: 01/02/2019 Document Reviewed: 11/30/2018 [employer] Patient Education 2020 [employer]. Follow Up Care 02/25/2022 16:01:07 With:Follow up with primary care provider Address:Unknown When:1-2 days [facility] 02-26-2022 Note Discharge Instructions Thank you for allowing [facility] to assist you with your healthcare needs. The following is important discharge information regarding your hospital visit. Your Care Team PHYSICIAN, NONE What to do next Follow Up Appointments Follow Up with Follow up with primary care provider When Within 1-2 days The Following Activity and Diet Have Been Ordered for You Discharge Activity - Ordered -- NO activity restrictions, 02/26/22 15:52:00 EDT Discharge Diet - Ordered -- No changes were made to your diet during your hospital stay. Please resume your pre hospitalization diet on discharge., 02/26/22 15:52:00 EDT The Following Equipment Has Been Ordered for You No qualifying data available. The Following Treatments Have Been Ordered for You Discharge Labs Discharge Outpatient Labwork - Ordered -- cbc, Thrombocytopenia, Results Notify to: Primary care physician, On 03/02/2022, 02/26/22 15:52:00 EDT Discharge Outpatient Labwork - Ordered -- BMP, Hypokalemia, Results Notify to: Primary care physician, On 03/02/2020, 02/26/22 15:52:00 EDT Discharge Radiology No qualifying data available. Other Therapies No qualifying data available. Post Acute Orders No qualifying data available. Someone Will Contact You Regarding These Home Health Referrals No home referrals have been ordered for you. No one will call you. Allergies penicillin Medications Please ask your primary doctor or pharmacist before taking any other medication not listed, including over the counter drugs, herbal medications, vitamins and or supplements as they may interact with your home medications. Please take this list to your next doctor s visit. Bring all medications you take, including over the counter medications, herbals and other supplements with you to your doctor s visit. Patients and families are reminded to discard old lists and to update any records with all medication providers or retail pharmacies. Education Materials Bradycardia, Adult Bradycardia is a xpexqy-mdmi-rpmrfd heartbeat. A normal resting heart rate for an adult ranges from 60 to 100 beats per minute. With bradycardia, the resting heart rate is less than 60 beats per minute. Bradycardia can prevent enough oxygen from reaching certain areas of your body when you are active. It can be serious if it keeps enough oxygen from reaching your brain and other parts of your body. Bradycardia is not a problem for everyone. For some healthy adults, a slow resting heart rate is normal. What are the causes? This condition may be caused by: A problem with the heart, including: ? A problem with the heart's electrical system, such as a heart block. With a heart block, electrical signals between the chambers of the heart are partially or completely blocked, so they are not able to work as they should. ? A problem with the heart's natural pacemaker (sinus node). ? Heart disease. ? A heart attack. ? Heart damage. ? Lyme disease. ? A heart infection. ? A heart condition that is present at (congenital heart defect). Certain medicines that treat heart conditions. Certain conditions, such as hypothyroidism and obstructive sleep apnea. Problems with the balance of chemicals and other substances, like potassium, in the blood. Trauma. Radiation therapy. What increases the risk? You are more likely to develop this condition if you: Are age 65 or older. Have high blood pressure (hypertension), high cholesterol (hyperlipidemia), or diabetes. Drink heavily, use tobacco or nicotine products, or use drugs. What are the signs or symptoms? Symptoms of this condition include: Light-headedness. Feeling faint or fainting. Fatigue and weakness. Trouble with activity or exercise. Shortness of breath. Chest pain (angina). Drowsiness. Confusion. Dizziness. How is this diagnosed? This condition may be diagnosed based on: Your symptoms. Your medical history. A physical exam. During the exam, your health care provider will listen to your heartbeat and check your pulse. To confirm the diagnosis, your health care provider may order tests, such as: Blood tests. An electrocardiogram (ECG). This test records the heart's electrical activity. The test can show how fast your heart is beating and whether the heartbeat is steady. A test in which you wear a portable device (event recorder or Holter monitor) to record your heart's electrical activity while you go about your day. An exercise test. How is this treated? Treatment for this condition depends on the cause of the condition and how severe your symptoms are. Treatment may involve: Treatment of the underlying condition. Changing your medicines or how much medicine you take. Having a small, battery-operated device called a pacemaker implanted under the skin. When bradycardia occurs, this device can be used to increase your heart rate and help your heart beat in a regular rhythm. Follow these instructions at home: Lifestyle Manage any health conditions that contribute to bradycardia as told by your health care provider. Follow a heart-healthy diet. A sports nutritionist (dietitian) can help educate you about healthy food options and changes. Follow an exercise program that is approved by your health care provider. Maintain a healthy weight. Try to reduce or manage your stress, such as with yoga or meditation. If you need help reducing stress, ask your health care provider. Do not use any products that contain nicotine or tobacco, such as cigarettes, e-cigarettes, and chewing tobacco. If you need help quitting, ask your health care provider. Do not use illegal drugs. Limit alcohol intake to no more than 1 drink a day for non women and 2 drinks a day for men. Be aware of how much alcohol is in your drink. In the [place] one drink equals one 12 oz bottle of beer (355 mL), one 5 oz glass of wine (148 mL), or one 1 oz glass of hard liquor (44 mL). General instructions Take yapz-qji-pbwamjz and prescription medicines only as told by your health care provider. Keep all follow-up visits as told by your health care provider. This is important. How is this prevented? In some cases, bradycardia may be prevented by: Treating underlying medical problems. Stopping behaviors or medicines that can trigger the condition. Contact a health care provider if you: Feel light-headed or dizzy. Almost faint. Feel weak or are easily fatigued during physical activity. Experience confusion or have memory problems. Get help right away if: You faint. You have: ? An irregular heartbeat (palpitations). ? Chest pain. ? Trouble breathing. Summary Bradycardia is a tbtqwq-ccud-nrltdj heartbeat. With bradycardia, the resting heart rate is less than 60 beats per minute. Treatment for this condition depends on the cause. Manage any health conditions that contribute to bradycardia as told by your health care provider. Do not use any products that contain nicotine or tobacco, such as cigarettes, e-cigarettes, and chewing tobacco, and limit alcohol intake. Keep all follow-up visits as told by your health care provider. This is important. This information is not intended to replace advice given to you by your health care provider. Make sure you discuss any questions you have with your health care provider. Document Released: 03/13/2003 Document Revised: 01/02/2019 Document Reviewed: 11/30/2018 [employer] Patient Education 2020 [employer]. Additional Information VACCINATE! IT SAVES LIVES! Members of the community who have not yet received the COVID-19 vaccine and would like to receive it can visit one of [facility] vaccine clinics. There are many vaccine clinic locations within the [facility]. For locations and available times, please visit [email or web address].vti o.gov/. It is important to note that some COVID mobile vaccine clinics are held outdoors and may be canceled in rainy or stormy conditions. To learn more about pediatric vaccinations (ages 5-11), we invite you to visit the [facility] webpage. [email or web address]/pag [email or web address]-[email or web address]-[email or web address]-[email or web address]-Zrjjnmnbr.html To learn more about the COVID-19 vaccine, we invite you to visit the [facility] website for a list of frequently asked questions. [email or web address] ently_[email or web address] [facility] Patient Portal Access Instructions: Stay connected with your healthcare team and access your personal medical information anytime with the [facility] Patient Portal.If you would like a full copy of your medical records, please contact the [facility] Medical Records Department, Wednesday through Wednesday between 8a.m. and 4:30p.m. Please follow the directions below to access the portal: 1.Access the email account you provided upon registration to the [facility].2.Look for an invitation email from [facility].3.Open the email and access the invitation link: Accept Invitation to [facility].Fill in the required palma to create your account. Sign into www.[employer] with your username and password that you created in the above steps to stay up to date. You can then view a summary of results, a summary of your visits, and the ability to download your summaries to your computer or send the information securely to a physician. Remember that your healthcare information is confidential, so carefully consider who you will allow to register on the [facility] Patient Portal for access to your information. You can also access the [facility] Patient Portal on the [employer]rell. Simply click on Health Records under Health Data and then click on the [employer] logo. HOW TO SAFELY DISPOSE OF PRESCRIPTION MEDICATIONS Please use one of the following methods to safely dispose of your unused medications. 1.Use a drug disposal kit: the drug disposal pouch allows you to safely discard your old and unused drugs. Ask your nurse to give you one when you are discharged.2.Visit a local take-back location: Many local pharmacies and police departments have programs that collect old and unwanted prescription drugs. Call your local pharmacy or go to http://iCeutica.[employer])/1B9Vl7o to find one close to you.3.Make use of household items: Use cat litter or old coffee grounds to dispose medications if other options are not available. Mix your drugs with these household products, seal them in an airtight container and throw it into the garbage. Call [facility]: [phone] to be sure your drugs can be disposed of in this way. Some medicines may require a different approach.4.Never flush your medications down the toilet. IF YOU HAVE BEEN PRESCRIBED AN OPIOID FOR PAIN If you have been prescribed an opioid (such as hydrocodone, oxycodone or morphine), it is critical to understand the possible side effects and risks of opioid pain medications. Even when taken as directed, opioids can have several side effects including: Tolerance, meaning you might need to take more of a medication for the same pain relief. Nausea, vomiting and/or constipation. Sleepiness, dizziness, dry mouth, confusion, depression or itching. Physical dependence, meaning you have withdrawal symptoms when a medication is stopped, can develop within a few days. KNOW YOUR RESPONSIBILITIES It is important to know exactly how much and how often to take the opioid pain medications you are prescribed. Never take opioids in higher amounts or more often than prescribed. Do not combine opioids with alcohol or other drugs that cause drowsiness, such as benzodiazepines, also known as benzos, including diazepam and alprazolam, muscle relaxants or sleep aids. Never sell or share prescription opioids. This is illegal. Store opioids in a secure place and out of reach of others (including children, family, friends and visitors). The last page of this document has been signed and retained as a CHART COPY. Signatures Patient Education Materials Bradycardia, Adult Medication Leaflets My discharge plan and instructions have been reviewed and explained to me and ITENA GABRYELLE E understand my current condition and have read and understand these discharge instructions. I have received a written copy of the plan/instructions. If I have questions, I am aware that I should contact my doctor. Patient/[employer] Signature: Date/Time: Relationship to Patient: ___ Witness Name/Signature: Date/Time: [facility] 02-26-2022 Discharge summary [facility] Medicine Discharge summary Date of Admission: 02/25/2022 19:09:00 Date of Discharge: 02/26/2022 15:50:51 Discharge Diagnosis: COVID-19 infection Sinus bradycardia Thrombocytopenia Hypokalemia Brief Hospital Course: This is a 31 Years old Female patient with no significant past medical history who comes into hospital with complaints of palpitations. Patient was recently diagnosed with COVID-19 infection and over the past week or so patient has developed some palpitations and she was noted to be bradycardic. Patient was seen in the ER and she had CT of the chest done which did not show any evidence of PE. She was admitted here and consultation was placed to cardiology who I discussed with her and they were okay with patient being discharged. Patient is saturating well on room air. Please review progress note from earlier today for further details. Discussed with patient again and she is agreeable with the treatment plan. She will need to establish primary care physician and have a close follow-up. Follow-up CBC and BMP will be ordered. She was instructed to come back to the hospital or seek medical attention if she notices any worsening of symptoms including any chest pain, bradycardia, dizziness, lightheadedness or anything out of ordinary. Consultations: JOSE VERMA MD; MELYSSA JACQUES MD Complications: None Discharge condition:Stable Discharge disposition: To Home Discharge instructions: 1. Activity: Resume prehospital activity. Signature: Miguel Orourke M.D. Digitally Signed by MIGUEL OROURKE MD on 02/26/2022 03:54 PM [facility] 02-26-2022 Respiratory therapy Hospital Progress note Respiratory Therapy Evaluation Entered On: 02/26/2022 15:49 EDT Performed On: 02/26/2022 15:48 EDT by Pamela Renee RT Respiratory Therapy Evaluation Pulmonary Status : Smoking history < 20 pack years Surgical Status : No surgeries Chest X-Ray : Clear/not ordered Breath Sounds (RT) : Clear Respiratory Pattern (RT) : Regular RR=12-20 Cough (RT) : Strong, non-productive Respiratory Therapy Evaluation Score : 1 Level of Activity : Ambulatory Mental Status : Alert, oriented Respiratory Evaluation Triage Score : 5 - (0-5) Freq: Q4RT prn RT Assessment [Frequency/Schedule] : PRN Pamela Renee RT - 02/26/2022 15:48 EDT Digitally Signed by Pamela Renee RT on 02/26/2022 03:48 PM [facility] 02-26-2022 Note [facility] Hospitalist Progress Note Location: [place] [address] Status: General Medicine Subjective: KELLEN MADSEN is a 31 Years old Female patient seen and examined for bradycardia, palpitations, patient alert, chart reviewed, denies any headache, dizziness, chest pain today. Awaiting cardiology evaluation. Saturating well on room air. Vitals: Temperature Oral: 36.6 DegC Peripheral Pulse Rate: 44 bpm Critical Heart Rate Monitored: 54 bpm Low Respiratory Rate: 14 br/min Systolic Blood Pressure: 105 mmHg Diastolic Blood Pressure: 59 mmHg Low Mean Arterial Pressure: 74 mmHg HEENT: no Pallor, no Icterus Cardiac: Bradycardic, no murmur Lungs: CTA, good air entry Abdomen: Soft, non tender Extremities: No edema, good pulses Neurological: Alert, no deficits Assessment/Plan: 1. This is 31-year-old female patient who presents with complaints of palpitations. She thinks she got COVID approximately 2 weeks ago and she started developing palpitations and became bradycardic over the past few days. Awaiting cardiology evaluation. CT chest reviewed. 2. COVID-19 infection, continue with isolation and symptomatic treatment 3. Thrombocytopenia secondary to underlying COVID infection, continue to monitor 4. Hypokalemia, replace potassium 5. DVT prophylaxis Diet Order - Ordered -- 02/25/22 20:04:00 EDT, Start Meal: Next meal, Regular, Constant Order, : No, per patient, : No No qualifying data available. Labs: Reviewed 02/26 04:46 WBC: 4.6 Hgb: 13.2 Hct: 39.7 Platelet: 147 L Neutrophil %: 34.0 L Glucose Level: 94 Sodium Level: 141 Potassium Level: 3.4 L BUN: 11.0 Creatinine Lvl (s): 0.72 02/25 20:41 WBC: 4.1 L Hgb: 13.5 Hct: 40.9 Platelet: 145 L Neutrophil %: 55.6 Glucose Level: 110 Sodium Level: 146 H Potassium Level: 3.2 L BUN: 8.0 Creatinine Lvl (s): 0.69 Microbiology No qualifying data available. CT Angiography Chest w/ Contrast Result Date: February 25, 2022 Verified By: TONY KNAPP MD CLINICAL STATEMENT: IMPRESSION: Mildly limited exam due to the phase of contrast. Within these limitations,no evidence of a pulmonary embolism. No acute intrathoracic process. 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 I have personally reviewed the images of this examination and agree with theresident's findings and interpretation. RECOMMENDATIONS:Unavailable Inpatient medications: Medications (10) Active Scheduled: (2) albuterol 90 mcg/inh HFA Inhaler 180 mcg 2 puff(s), Inhalation, q4hRT enoxaparin 40 mg/ 0.4mL syringe 40 mg 0.4 mL, Subcutaneous, qDay Continuous: (0) PRN: (8) acetaminophen 325 mg Tablet 650 mg 2 tab(s), Oral, q4h acetaminophen-OXYcodone 325 mg-5 mg Tablet 1 tab(s), Oral, q4h acetaminophen-OXYcodone 325 mg-5 mg Tablet 2 tab(s), Oral, q4h melatonin 3 mg tablet 3 mg 1 tab(s), Oral, qHS melatonin 3 mg tablet 3 mg 1 tab(s), Oral, qHS ondansetron 2 mg/ 1 mL 2 mL INJ 4 mg 2 mL, IV Push, q4h polyethylene glycol 3350 - UD packet 17 gram(s) 15 mL, Oral, qDay promethazine 25 mg Tablet 25 mg 1 tab(s), Oral, q6h Signature: Miguel Orourke M.D. Digitally Signed by MIGUEL OROURKE MD on 02/26/2022 01:12 PM [facility] 02-26-2022 Cardiology Consult note Date of Service 02/26/2022 Reason for Consultation Chest pain, bradycardia Referring Physician Dr. Briggs History of Present Illness Patient is a 31-year-old female with past medical history of former tobacco use who presented with generalized weakness, shortness of breath, and chest discomfort. She came to the emergency department where she was noted to be COVID-positive. EKG showed sinus bradycardia and nonischemic, troponin negative x4, BNP normal, D-dimer normal. She is having a mild chest tightness across her anterior chest wall. It is nonradiating, no exacerbating or alleviating factors. She has had that only since her COVID infection. Patient is a former smoker who quit 2 to 3 years ago after smoking for about 10 years. She smokes occasional marijuana and denies alcohol use. She has family history of heart attacks in her father when he was in his 50s. Review of Systems Constitutional: Positive malaise, fatigue Head/Neck: No neck pain, stiffness Eyes: No changes in vision, loss of vision, blurred vision, double vision Cardiac: Mild chest tightness as described above, no palpitations, no leg swelling Lungs: No cough, wheezing, dyspnea, sputum production Abdomen: No abdominal pain, nausea, vomiting, constipation, diarrhea, vomiting, hematochezia, hematemesis Genitourinary: No dysuria, frequency, urgency, malodorous urine, hematuria Musculoskeletal: No joint pain, joint swelling, muscle aches, muscle cramps Skin: No rash, lesions, easy bruising, itching Neurological: No headaches, dizziness, weakness, loss of consciousness, confusion Psychiatric: No sleep disturbances, anxiety, depression, suicidal ideations, homicidal ideations Physical Exam Vitals and Measurements T: 36.6 C (Oral) TMIN: 36.5 C (Oral) TMAX: 36.9 C (Oral) HR: 54(Monitored) RR: 14 BP: 105/59 SpO2: 100% HT: 160.0 cm WT: 67.3 kg BMI: 26.29 Weight Dosing Weight: 67.3 kg (02/25/22) Constitutional: No acute distress, AOx4 Head: Normocephalic, nontraumatic Eyes: PERRLA, EOMI, no scleral icterus ENT: Oropharynx clear without erythema, exudates, lesions. Nares clear without discharge Neck: No JVD, no HJR. Soft, supple, normal ROM Cardiac: Bradycardic, regular rhythm Lungs: CTABL, no rales, wheezes, or rhonchi. No accessory muscle use. No labored breathing Abdomen: Soft, nontender, nondistended, normoactive bowel tones, no hepatosplenomegaly Genitourinary: No suprapubic tenderness to palpation Musculoskeletal: No lower extremity edema, ROM intact x4 Skin: Warm, dry, no lesions, no erythema Neurological: Nonfocal Psychiatric: Mood, insight, judgement normal Lab Results 02/26 04:46 WBC: 4.6 Hgb: 13.2 Hct: 39.7 Platelet: 147 L Neutrophil %: 34.0 L Glucose Level: 94 Sodium Level: 141 Potassium Level: 3.4 L BUN: 11.0 Creatinine Lvl (s): 0.72 02/25 20:41 WBC: 4.1 L Hgb: 13.5 Hct: 40.9 Platelet: 145 L Neutrophil %: 55.6 Glucose Level: 110 Sodium Level: 146 H Potassium Level: 3.2 L BUN: 8.0 Creatinine Lvl (s): 0.69 EKG EC02/26/22: Sinus bradycardia...rate< 50 Probable left atrial enlargement...P >50mS, <-0.10mV V1 Low voltage, precordial leads...precordial leads <1.0mV Electronic Signature: MARYLOU BARAJAS MD 02/26/2022 08:08:57 Assessment/Plan 1. COVID-19 2. Atypical chest pain 3. Asymptomatic sinus bradycardia Plan: Patient has mild, atypical chest tightness in the setting of COVID-19. While she does have some risk factors including family history and former tobacco use, her symptoms are not suggestive of critical coronary artery disease. She is a low pretest probability individual with 4 negative troponin which are very reassuring. This bodes well for her, with very high negative predictive value of future cardiac events. She has been also noted to have a mild sinus bradycardia which is asymptomatic and likely related to her COVID infection. No further ischemic evaluation warranted. Echo is ordered but should not hold up discharge plan is otherwise to send her home. She can have this done as outpatient and follow with cardiology office. Remainder issues per primary team. We will sign off at this time. Plan discussed with attending physician. Problem List/Past Medical History Ongoing GERD (gastroesophageal reflux disease) Nosebleed Historical No qualifying data Procedure/Surgical History Knee Medications Inpatient albuterol HFA MDI (90 mcg/inh) R/O COVID19 inhalation aerosol, 180 mcg= 2 puff(s), Inhalation, q4hRT Lovenox, 40 mg= 0.4 mL, Subcutaneous, qDay melatonin, 3 mg= 1 tab(s), Oral, qHS, PRN melatonin, 3 mg= 1 tab(s), Oral, qHS, PRN Miralax Powder Packet, 17 gram(s)= 15 mL, Oral, qDay, PRN Percocet 325/5, 1 tab(s), Oral, q4h, PRN Percocet 325/5, 2 tab(s), Oral, q4h, PRN Phenergan, 25 mg= 1 tab(s), Oral, q6h, PRN Tylenol, 650 mg= 2 tab(s), Oral, q4h, PRN Zofran, 4 mg= 2 mL, IV Push, q4h, PRN Home No active home medications Allergies penicillin Social History Smoking Status - 12/05/2016 Current every day smoker Alcohol Use: Never., 12/31/2021 Substance Abuse Use: Current. Type: Marijuana. Frequency: 3-5 times per week., 12/31/2021 Tobacco Nicotine Use: Never (less than 100 in lifetime)., 12/31/2021 Family History Cancer: Mother. Immunizations tetanus/diphth/pertuss (Tdap) adult/adol: 0.5 mL (12/31/21) Digitally Signed by JOSE VERMA MD on 02/26/2022 03:50 PM [facility] 02-26-2022 History and physical note Date of Service 02/25/2022 Chief Complaint Bradycardia, chest pain, COVID-positive History of Present Illness 31-year-old female with no significant past medical history is presenting with nasal congestion, cough, generalized weakness and shortness of breath that started 1 week ago she became concerned when she started develop chest pain last night which seems to come and go she is not sure if it is related to exertion or inspiration. So she went to the emergency department at [place] In the department Patient tested positive for COVID Found to be bradycardic in the 40s EKG sinus bradycardia Chest x-ray had no acute process Troponin unremarkable BNP 147 BMP unremarkable CBC significant for thrombocytopenia 128 ED physician spoke to cardiology on-call recommended admission to the hospital service Report was taken by my colleague Dr. York (confirmed that there is a typo that the avionics mechanic recommended admission to the hospital service) upon arrival to the floor patient is confirming that she is still having some chest pain Review of Systems All pertinent positive and negative review of systems as per HPI, all other review of systems reviewed and negative Physical Exam Vitals and Measurements T: 36.5 C (Oral) HR: 44 RR: 16 BP: 104/70 SpO2: 100% HT: 160.0 cm WT: 67.3 kg BMI: 26.29 Weight Dosing Weight: 67.3 kg (02/25/22) GENERAL:Well nourished ; no acute distress. ASSISTIVE DEVICES: None PSYCHIATRIC: appropriate HEENT moist mucous membranes extraocular muscles intact CARDIOVASCULAR: Regular rate, regular rhythm, no murmurs noted. Notrace lower extremity pitting edema. No lymphedema. Dorsalis Pedis pulses+2/4 blaterally . Posterior Tibialis pulses+2/4 bilaterally . RESPIRATORY: Regular rate and depth; no distress, RIGHT lungclear ; LEFT lungclear . Breath soundsnormal . NEURO: no focal deficits DERM: no acute rash Exam done in presence of patient's nurse Lab Results No 36 Hour Lab Data Assessment/Plan 31-year-old female with no significant past medical history is presenting with with shortness of breath, nasal congestion, cough and chest pain at risk for pulmonary emboli given that she has an active COVID-19 infection we will proceed with a CT PE COVID-19 infection Airborne precautions albuterol inhaler as needed, monitor pulse ox, if patient desats start remdesivir/Decadron Sinus bradycardia we will check a TSH to rule out hypothyroid, echocardiogram call consult EP Chest pain in the setting of COVID-19 places her at increased risk for pulmonary emboli we will proceed with a CT PE, cycle EKGs and cardiac enzymes Thrombocytopenia and leukopenia likely second to COVID-19 infection monitor platelet count and white blood cell count GERD stable History of nosebleed monitor DVT prophylaxis we will place on Lovenox 40 daily monitor as she does have thrombocytopenia but needs to be anticoagulated given the increased risk of DVT/PE in the setting of COVID-19 Full code Problem List/Past Medical History Ongoing GERD (gastroesophageal reflux disease) Nosebleed Historical No qualifying data Procedure/Surgical History Knee Medications No qualifying data available Allergies penicillin Social History Smoking Status - 12/05/2016 Current every day smoker Alcohol Use: Never., 12/31/2021 Substance Abuse Use: Current. Type: Marijuana. Frequency: 3-5 times per week., 12/31/2021 Tobacco Nicotine Use: Never (less than 100 in lifetime)., 12/31/2021 Family History Cancer: Mother. Immunizations tetanus/diphth/pertuss (Tdap) adult/adol: 0.5 mL (12/31/21) Code Status No qualifying data available. Digitally Signed by LING BRIGGS MD on 02/25/2022 08:38 PM [facility] 02-25-2022 Note ORIGINAL EXAMINATION: CTA OF THE CHEST 02/25/2022 9:03 pm TECHNIQUE: CTA of the chest was performed after the administration of intravenous contrast. Multiplanar reformatted images are provided for review. MIP images are provided for review. Automated exposure control, iterative reconstruction, and/or weight based adjustment of the mA/kV was utilized to reduce the radiation dose to as low as reasonably achievable. COMPARISON: Same day chest x-ray. HISTORY: ORDERING SYSTEM PROVIDED HISTORY: Reason for Exam: sob. chest heaviness x last night. no hx of clots. covid positive. cp FINDINGS: Pulmonary Arteries: Limited exam due to the phase of contrast and respiratory motion artifact. Within these limitations, no evidence of a pulmonary embolism. The main pulmonary artery is normal in caliber. 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 Mediastinum: The heart is normal in size. No pericardial effusion. The aorta is nonaneurysmal. No hilar or mediastinal lymphadenopathy. No axillary lymphadenopathy. The visualized thyroid gland is within normal limits. 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 Lungs/pleura: The central airways are patent. No consolidation, pleural effusion, or pneumothorax. Upper Abdomen: Limited views of the upper abdomen demonstrate reflux of contrast into the IVC which can be seen in the setting of right heart dysfunction. Soft Tissues/Bones: No acute bone or soft tissue abnormality. IMPRESSION: Mildly limited exam due to the phase of contrast. Within these limitations, no evidence of a pulmonary embolism. No acute intrathoracic process. 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 I have personally reviewed the images of this examination and agree with the resident's findings and interpretation. RECOMMENDATIONS: Unavailable Interpreted by: Tony Knapp Preliminary Report By: Foster Anthony Electronically signed By Tony Knapp Dictated Date: 02/25/2022 9:06:22 PM Prelim Date: 02/25/2022 9:19:45 PM Sign Date: 02/25/2022 10:21:39 PM Ordering Provider: [facility] 02-25-2022 Note ORIGINAL EXAMINATION: CTA OF THE CHEST 02/25/2022 9:03 pm TECHNIQUE: CTA of the chest was performed after the administration of intravenous contrast. Multiplanar reformatted images are provided for review. MIP images are provided for review. Automated exposure control, iterative reconstruction, and/or weight based adjustment of the mA/kV was utilized to reduce the radiation dose to as low as reasonably achievable. COMPARISON: Same day chest x-ray. HISTORY: ORDERING SYSTEM PROVIDED HISTORY: Reason for Exam: sob. chest heaviness x last night. no hx of clots. covid positive. cp FINDINGS: Pulmonary Arteries: Limited exam due to the phase of contrast and respiratory motion artifact. Within these limitations, no evidence of a pulmonary embolism. The main pulmonary artery is normal in caliber. 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 Mediastinum: The heart is normal in size. No pericardial effusion. The aorta is nonaneurysmal. No hilar or mediastinal lymphadenopathy. No axillary lymphadenopathy. The visualized thyroid gland is within normal limits. 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 Lungs/pleura: The central airways are patent. No consolidation, pleural effusion, or pneumothorax. Upper Abdomen: Limited views of the upper abdomen demonstrate reflux of contrast into the IVC which can be seen in the setting of right heart dysfunction. Soft Tissues/Bones: No acute bone or soft tissue abnormality. IMPRESSION: Mildly limited exam due to the phase of contrast. Within these limitations, no evidence of a pulmonary embolism. No acute intrathoracic process. 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 I have personally reviewed the images of this examination and agree with the resident's findings and interpretation. RECOMMENDATIONS: Unavailable Interpreted by: Tony Knapp Preliminary Report By: Foster Anthony Electronically signed By Tony Knapp Dictated Date: 02/25/2022 9:06:22 PM Prelim Date: 02/25/2022 9:19:45 PM Sign Date: 02/25/2022 10:21:39 PM Ordering Provider: [facility] 02-25-2022 History and physical note Date of Service 02/25/2022 Chief Complaint Bradycardia, chest pain, COVID-positive History of Present Illness 31-year-old female with no significant past medical history is presenting with nasal congestion, cough, generalized weakness and shortness of breath that started 1 week ago she became concerned when she started develop chest pain last night which seems to come and go she is not sure if it is related to exertion or inspiration. So she went to the emergency department at [place] In the department Patient tested positive for COVID Found to be bradycardic in the 40s EKG sinus bradycardia Chest x-ray had no acute process Troponin unremarkable BNP 147 BMP unremarkable CBC significant for thrombocytopenia 128 ED physician spoke to cardiology on-call recommended admission to the hospital service Report was taken by my colleague Dr. York (confirmed that there is a typo that the avionics mechanic recommended admission to the hospital service) upon arrival to the floor patient is confirming that she is still having some chest pain Review of Systems All pertinent positive and negative review of systems as per HPI, all other review of systems reviewed and negative Physical Exam Vitals and Measurements T: 36.5 C (Oral) HR: 44 RR: 16 BP: 104/70 SpO2: 100% HT: 160.0 cm WT: 67.3 kg BMI: 26.29 Weight Dosing Weight: 67.3 kg (02/25/22) GENERAL:Well nourished ; no acute distress. ASSISTIVE DEVICES: None PSYCHIATRIC: appropriate HEENT moist mucous membranes extraocular muscles intact CARDIOVASCULAR: Regular rate, regular rhythm, no murmurs noted. Notrace lower extremity pitting edema. No lymphedema. Dorsalis Pedis pulses+2/4 blaterally . Posterior Tibialis pulses+2/4 bilaterally . RESPIRATORY: Regular rate and depth; no distress, RIGHT lungclear ; LEFT lungclear . Breath soundsnormal . NEURO: no focal deficits DERM: no acute rash Exam done in presence of patient's nurse Lab Results No 36 Hour Lab Data Assessment/Plan 31-year-old female with no significant past medical history is presenting with with shortness of breath, nasal congestion, cough and chest pain at risk for pulmonary emboli given that she has an active COVID-19 infection we will proceed with a CT PE COVID-19 infection Airborne precautions albuterol inhaler as needed, monitor pulse ox, if patient desats start remdesivir/Decadron Sinus bradycardia we will check a TSH to rule out hypothyroid, echocardiogram call consult EP Chest pain in the setting of COVID-19 places her at increased risk for pulmonary emboli we will proceed with a CT PE, cycle EKGs and cardiac enzymes Thrombocytopenia and leukopenia likely second to COVID-19 infection monitor platelet count and white blood cell count GERD stable History of nosebleed monitor DVT prophylaxis we will place on Lovenox 40 daily monitor as she does have thrombocytopenia but needs to be anticoagulated given the increased risk of DVT/PE in the setting of COVID-19 Full code Problem List/Past Medical History Ongoing GERD (gastroesophageal reflux disease) Nosebleed Historical No qualifying data Procedure/Surgical History Knee Medications No qualifying data available Allergies penicillin Social History Smoking Status - 12/05/2016 Current every day smoker Alcohol Use: Never., 12/31/2021 Substance Abuse Use: Current. Type: Marijuana. Frequency: 3-5 times per week., 12/31/2021 Tobacco Nicotine Use: Never (less than 100 in lifetime)., 12/31/2021 Family History Cancer: Mother. Immunizations tetanus/diphth/pertuss (Tdap) adult/adol: 0.5 mL (12/31/21) Code Status No qualifying data available. Digitally Signed by LING BRIGGS MD on 02/25/2022 08:38 PM [facility] 31-year-old female with no s ignificant past medical history is presenting with with shortness of breath, nasal congestion, cough and chest pain at risk for pulmonary emboli given that she has an active COVID-19 infection we will proceed with a CT PE COVID-19 infection Airborne precautions albuterol inhaler as needed, monitor pulse ox, if patient desats start remdesivir/Decadron Sinus bradycardia we will check a TSH to rule out hypothyroid, echocardiogram call consult EP Chest pain in the setting of COVID-19 places her at increased risk for pulmonary emboli we will proceed with a CT PE, cycle EKGs and cardiac enzymes Thrombocytopenia and leukopenia likely second to COVID-19 infection monitor platelet count and white blood cell count GERD stable History of nosebleed monitor DVT prophylaxis we will place on Lovenox 40 daily monitor as she does have thrombocytopenia but needs to be anticoagulated given the increased risk of DVT/PE in the setting of COVID-19 Full code Addendum by LING BRIGGS MD on February 26, 2022 00:03:07 EDT Bilateral lower extremity Doppler ordered as patient is complaining of lower extremity pain to rule out DVT [facility] 08-24-2022 Note ORIGINAL EXAMINATION: ONE XRAY VIEW OF THE CHEST 02/25/2022 11:11 am COMPARISON: None. HISTORY: ORDERING SYSTEM PROVIDED HISTORY: Reason for Exam: SOB/cough/fever FINDINGS: Cardiomediastinal contours are normal. Clear lungs. No pneumothorax or pleural effusion. Bones are grossly normal. IMPRESSION: Clear lungs. Interpreted by: Tushar Cooley Preliminary Report By: Tushar Cooley Electronically signed By Tushar Cooley Dictated Date: 02/25/2022 11:33:49 AM Prelim Date: 02/25/2022 11:34:24 AM Sign Date: 02/25/2022 11:34:24 AM Ordering Provider: [facility]08-24-[facility]22 Note ORIGINAL EXAMINATION: ONE XRAY VIEW OF THE CHEST 02/25/2022 11:11 am COMPARISON: None. HISTORY: ORDERING SYSTEM PROVIDED HISTORY: Reason for Exam: SOB/cough/fever FINDINGS: Cardiomediastinal contours are normal. Clear lungs. No pneumothorax or pleural effusion. Bones are grossly normal. IMPRESSION: Clear lungs. Interpreted by: Tushar Cooley Preliminary Report By: Tushar Cooley Electronically signed By Tushar Cooley Dictated Date: 02/25/2022 11:33:49 AM Prelim Date: 02/25/2022 11:34:24 AM Sign Date: 02/25/2022 11:34:24 AM Ordering Provider: [place] [id number] SARS-CoV-2 (COVID-19) RNA DENISE+probe Ql (Nph)Positive *ABN* (02/25/22 10:39 AM)AO Auto Urine [id number] Hospital Discharge instructions Patient Education 12/31/2021 14:46:38 Fracture, Finger, Closed Finger Fracture, Closed You have a broken finger (fracture). This causes local pain, swelling, and bruising. This injury usually takes about 4 to 6 weeks to heal, but can take longer in some cases. Finger injuries are oftentreated with a splint or cast, or by taping the injured finger to the next one (nneka taping). Thisprotects the injured finger and holds the bone in position while it heals. More serious fractures may need surgery. If the fingernail has been severely injured, it will probably fall off in 1 to 2 weeks. A new fingernail will usually start to grow back within a month. Home care Follow these guidelines when caring for yourself at home: Keep your hand elevated to reduce pain and swelling. When sitting or lying down keep your arm abovethe level of your heart. You can do this by placing your arm on a pillow that rests on your chest or on a pillow at your side. This is most important during the first 2 days (48 hours) after the injury. Put an ice pack on the injured area. Do this for 20 minutes every 1 to 2 hours the first day for pain relief. You can make an ice pack by wrapping a plastic bag of ice cubes in a thin towel. As the ice melts, be careful that the cast or splint doesn t get wet. Continue using the ice pack 3 to 4 times a day until the pain and swelling go away. Keep the cast or splint completely dry at all times. Bathe with your cast or splint out of the water. Protect it with a large plastic bag, rubber-banded at the top end. If a fiberglass cast or splintgets wet, you can dry it with a hairspring assembler. If nneka tape was put on and it becomes wet or dirty, change it. You may replace it with paper, plastic, or cloth tape. Cloth tape and paper tapes must be kept dry. Keep the nneka tape in place for at least 4 weeks. You may use acetaminophen or ibuprofen to control pain, unless another pain medicine was prescribed. If you have chronic liver or kidney disease, talk with your healthcare provider before using thesemedicines. Also talk with your provider if you ve had a stomach ulcer or gastrointestinal bleeding. Don t put creams or objects under the cast if you have itching. Follow-up care Follow up with your healthcare provider, or as advised. This is to make sure the bone is healing the way it should. X-rays may be taken. You will be told of any new findings that may affect your care. When to seek medical advice Call your healthcare provider right away if any of these occur: The plaster cast or splint becomes wet or soft The cast or splint cracks The fiberglass cast or splint stays wet for more than 24 hours Pain or swelling gets worse Redness, warmth, swelling, drainage from the wound, or foul odor from a cast or splint Finger becomes more cold, blue, numb, or tingly You can t move your finger The skin around the cast or splint becomes red Fever of 100.4 F (38 C) or higher, or as directed by your healthcare provider [id number] [employer]. [address] [place] [address], [place] [address]. All rights reserved. This information is not intended as a substitute for professional medical care. Always follow yourhealthcare professional's instructions. Follow Up Care 12/31/2021 13:25:37 With:malachi Address: When:2-4 days With:KENJI REYES MD [facility] [address] [facility] [address] [place] [place] [address] [phone] When:2-4 days With:Call AMB New Pt. Refferral [phone] Address:Unknown When:2-4 days [facility] 06-29-2022 Emergency department Discharge summary Discharge Instructions Thank you for allowing [facility] to assist you with your healthcare needs. The following is importantdischarge information regarding your hospital visit. Diagnosis from Today's Visit Finger injury - Minor What to Do Next Instructions from Your Care Team No qualifying data available. Post Acute Orders No qualifying data available. You Need to Schedule the Following Appointments Follow Up with malachi When Within 2-4 days Where: Follow Up with KENJI REYES MD When Within 2-4 days Where: [id number] [place] [address] [place] [address]- [phone] Follow Up with Call PHANI Mendez PtKyle Refferral [phone] When Within 2-4 days Allergies penicillin Medications Please ask your primary doctor or pharmacist before taking any other medication not listed, including over the counter drugs, herbal medications, vitamins and or supplements as they may interact withyour home medications. What How Much When Instructions Last Dose New cephalexin (cephalexin 500 mg oral tablet) 1 tab(s) by mouth Four (4) times a day Duration: 7 Days Printed Prescription Please take this list to your next doctor s visit. Bring all medications you take, including over the counter medications, herbals and other supplements with you to your doctor s visit. Patients and families are reminded to discard old lists and to update any records with all medication providers or retail pharmacies. Education Materials Finger Fracture, Closed You have a broken finger (fracture). This causes local pain, swelling, and bruising. This injury usually takes about 4 to 6 weeks to heal, but can take longer in some cases. Finger injuries are oftentreated with a splint or cast, or by taping the injured finger to the next one (nneka taping). Thisprotects the injured finger and holds the bone in position while it heals. More serious fractures may need surgery. If the fingernail has been severely injured, it will probably fall off in 1 to 2 weeks. A new fingernail will usually start to grow back within a month. Home care Follow these guidelines when caring for yourself at home: Keep your hand elevated to reduce pain and swelling. When sitting or lying down keep your arm abovethe level of your heart. You can do this by placing your arm on a pillow that rests on your chest or on a pillow at your side. This is most important during the first 2 days (48 hours) after the injury. Put an ice pack on the injured area. Do this for 20 minutes every 1 to 2 hours the first day for pain relief. You can make an ice pack by wrapping a plastic bag of ice cubes in a thin towel. As the ice melts, be careful that the cast or splint doesn t get wet. Continue using the ice pack 3 to 4 times a day until the pain and swelling go away. Keep the cast or splint completely dry at all times. Bathe with your cast or splint out of the water. Protect it with a large plastic bag, rubber-banded at the top end. If a fiberglass cast or splintgets wet, you can dry it with a hairspring assembler. If nneka tape was put on and it becomes wet or dirty, change it. You may replace it with paper, plastic, or cloth tape. Cloth tape and paper tapes must be kept dry. Keep the nneka tape in place for at least 4 weeks. You may use acetaminophen or ibuprofen to control pain, unless another pain medicine was prescribed. If you have chronic liver or kidney disease, talk with your healthcare provider before using thesemedicines. Also talk with your provider if you ve had a stomach ulcer or gastrointestinal bleeding. Don t put creams or objects under the cast if you have itching. Follow-up care Follow up with your healthcare provider, or as advised. This is to make sure the bone is healing the way it should. X-rays may be taken. You will be told of any new findings that may affect your care. When to seek medical advice Call your healthcare provider right away if any of these occur: The plaster cast or splint becomes wet or soft The cast or splint cracks The fiberglass cast or splint stays wet for more than 24 hours Pain or swelling gets worse Redness, warmth, swelling, drainage from the wound, or foul odor from a cast or splint Finger becomes more cold, blue, numb, or tingly You can t move your finger The skin around the cast or splint becomes red Fever of 100.4 F (38 C) or higher, or as directed by your healthcare provider [phone] [employer]. [address] [place] [address]. All rights reserved. This information is not intended as a substitute for professional medical care. Always follow yourhealthcare professional's instructions. Additional Information VACCINATE! IT SAVES LIVES! Members of the community who have not yet received the COVID-19 vaccine and would like to receive it can visit one of [facility] vaccine clinics. There are many vaccine clinic locations within the [facility]. For locations and available times, please visit [email or web address]. It is important to note that some COVID mobile vaccine clinics are held outdoors and may be canceled in rainy orstormy conditions. To learn more about pediatric vaccinations (ages 5-11), we invite you to visit the [facility] webpage. [email or web address] [email or web address] learn more about the COVID-19 vaccine, we invite you to visit the [facility] website for a list of frequently asked questions. [email or web address] _[email or web address]-Questions.pdf [facility] Patient Portal Access Instructions: Stay connected with your healthcare team and access your personal medical information anytime with the [facility] Patient Portal. If you would like a full copy of your medical records please contact the [facility] Medical Records Department Wednesday through Wednesday between 8a.m. and 4:30p.m. Please follow the directions below to access the portal: 1.Access the email account you provided upon registration to the [facility].2.Look for an invitation email from [facility].3.Open the email and access the invitation link: Accept Invitation to [facility]4.Fill in the required palma to create your account. Sign into www.[employer] with your username and password that you created in the above steps to stay up to date. You can then view a summary of results, a summary of your visits, and the ability to download your summaries to your computer or send the information securely to a physician. Remember that your healthcare information is confidential, so carefully consider who you will allow to register on the [facility] Patient Portal for access to your information. You can also access the [facility] Patient Portal on the [employer]. Simply click on Health Records under [employer] and then click on the [employer] logo. HOW TO SAFELY DISPOSE OF PRESCRIPTION MEDICATIONS Please use one of the following methods to safely dispose of your unused medications. 1.Use a drug disposal kit: the drug disposal pouch allows you to safely discard your old and unuseddrugs. Ask your nurse to give you one when you are discharged.2.Visit a local take-back location: Many local pharmacies and police departments have programs that collect old and unwanted prescriptiondrugs. Call your local pharmacy or go to http://iCeutica.[employer] ([employer])/6O0Bg8a to find one close to you.3.Make use of household items: Use cat litter or old coffee grounds to dispose medications if other options arenot available. Mix your drugs with these household products, seal them in an airtight container andthrow it into the garbage. Call [facility]: [phone] to be sure your drugs can be disposed of in this way. Some medicines may require a different approach.4.Never flush your medications down the toilet. IF YOU HAVE BEEN PRESCRIBED AN OPIOIDS FOR PAIN If you have been prescribed an opioid (such as hydrocodone, oxycodone or morphine), it is critical to understand the possible side effects and risks of opioid pain medications. Even when taken as directed, opioids can have several side effects including: Tolerance, meaning you might need to take more of a medication for the same pain relief. Nausea, vomiting and/or constipation. Sleepiness, dizziness, dry mouth, confusion, depression or itching. Physical dependence, meaning you have withdrawal symptoms when a medication is stopped ? this can develop within a few days. KNOW YOUR RESPONSIBILITIES It is important to know exactly how much and how often to take the opioid pain medications you are prescribed. Never take opioids in higher amounts or more often than prescribed. Do not combine opioids with alcohol or other drugs that cause drowsiness, such as benzodiazepines, also known as benzos,including diazepam and alprazolam, muscle relaxants or sleep aids. Never sell or share prescriptionopioids. This is illegal. Store opioids in a secure place and out of reach of others (including children, family, friends and visitors). The last page(s) of this document has been signed and retained as a CHART COPY Signatures Patient Education Materials Fracture, Finger, Closed Medication Leaflets My discharge plan and instructions have been reviewed and explained to me and ITENA GABRYELLE Eunderstand my current condition and have read and understand these discharge instructions. I have received a written copy of the plan/instructions. If I have questions, I am aware that I should contact my doctor. 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 The following is importantdischarge information regarding your hospital visit. Diagnosis from Today's Visit Finger injury - Minor What to Do Next Instructions from Your Care Team No qualifying data available. Post Acute Orders No qualifying data available. You Need to Schedule the Following Appointments Follow Up with KENJI REYES MD When Within 2-4 days Where: [address] [facility] [place] [address]- [phone] Follow Up with Call AMB New Pt. Refferral [phone] When Within 2-4 days Allergies penicillin Medications Please ask your primary doctor or pharmacist before taking any other medication not listed, including over the counter drugs, herbal medications, vitamins and or supplements as they may interact withyour home medications. Please take this list to your next doctor s visit. Bring all medications you take, including over the counter medications, herbals and other supplements with you to your doctor s visit. Patients and families are reminded to discard old lists and to update any records with all medication providers or retail pharmacies. Education Materials Finger Fracture, Closed You have a broken finger (fracture). This causes local pain, swelling, and bruising. This injury usually takes about 4 to 6 weeks to heal, but can take longer in some cases. Finger injuries are oftentreated with a splint or cast, or by taping the injured finger to the next one (nneka taping). Thisprotects the injured finger and holds the bone in position while it heals. More serious fractures may need surgery. If the fingernail has been severely injured, it will probably fall off in 1 to 2 weeks. A new fingernail will usually start to grow back within a month. Home care Follow these guidelines when caring for yourself at home: Keep your hand elevated to reduce pain and swelling. When sitting or lying down keep your arm abovethe level of your heart. You can do this by placing your arm on a pillow that rests on your chest or on a pillow at your side. This is most important during the first 2 days (48 hours) after the injury. Put an ice pack on the injured area. Do this for 20 minutes every 1 to 2 hours the first day for pain relief. You can make an ice pack by wrapping a plastic bag of ice cubes in a thin towel. As the ice melts, be careful that the cast or splint doesn t get wet. Continue using the ice pack 3 to 4 times a day until the pain and swelling go away. Keep the cast or splint completely dry at all times. Bathe with your cast or splint out of the water. Protect it with a large plastic bag, rubber-banded at the top end. If a fiberglass cast or splintgets wet, you can dry it with a hairspring assembler. If nneka tape was put on and it becomes wet or dirty, change it. You may replace it with paper, plastic, or cloth tape. Cloth tape and paper tapes must be kept dry. Keep the nneka tape in place for at least 4 weeks. You may use acetaminophen or ibuprofen to control pain, unless another pain medicine was prescribed. If you have chronic liver or kidney disease, talk with your healthcare provider before using thesemedicines. Also talk with your provider if you ve had a stomach ulcer or gastrointestinal bleeding. Don t put creams or objects under the cast if you have itching. Follow-up care Follow up with your healthcare provider, or as advised. This is to make sure the bone is healing the way it should. X-rays may be taken. You will be told of any new findings that may affect your care. When to seek medical advice Call your healthcare provider right away if any of these occur: The plaster cast or splint becomes wet or soft The cast or splint cracks The fiberglass cast or splint stays wet for more than 24 hours Pain or swelling gets worse Redness, warmth, swelling, drainage from the wound, or foul odor from a cast or splint Finger becomes more cold, blue, numb, or tingly You can t move your finger The skin around the cast or splint becomes red Fever of 100.4 F (38 C) or higher, or as directed by your healthcare provider [id number] [employer]. [address] [place] [address]. All rights reserved. This information is not intended as a substitute for professional medical care. Always follow yourhealthcare professional's instructions. Additional Information VACCINATE! IT SAVES LIVES! Members of the community who have not yet received the COVID-19 vaccine and would like to receive it can visit one of [facility] vaccine clinics. There are many vaccine clinic locations within the [facility]. For locations and available times, please visit [email or web address]. It is important to note that some COVID mobile vaccine clinics are held outdoors and may be canceled in rainy orstormy conditions. To learn more about pediatric vaccinations (ages 5-11), we invite you to visit the [facility] webpage. [email or web address] learn more about the COVID-19 vaccine, we invite you to visit the [facility] website for a list of frequently asked questions. [email or web address] [facility] Patient Portal Access Instructions: Stay connected with your healthcare team and access your personal medical information anytime with the [facility] Patient [facility]. If you would like a full copy of your medical records please contact the [facility] Medical Records Department Wednesday through Wednesday between 8a.m. and 4:30p.m. Please follow the directions below to access the portal: 1.Access the email account you provided upon registration to the [facility].2.Look for an invitation email from [facility].3.Open the email and access the invitation link: Accept Invitation to [facility]4.Fill in the required palma to create your account. Sign into [email or web address] with your username and password that you created in the above steps to stay up to date. You can then view a summary of results, a summary of your visits, and the ability to download your summaries to your computer or send the information securely to a physician. Remember that your healthcare information is confidential, so carefully consider who you will allow to register on the [facility] Patient Portal for access to your information. You can also access the [facility] Patient Portal on the [employer]. Simply click on Health Records under [employer] and then click on the [employer] logo. HOW TO SAFELY DISPOSE OF PRESCRIPTION MEDICATIONS Please use one of the following methods to safely dispose of your unused medications. 1.Use a drug disposal kit: the drug disposal pouch allows you to safely discard your old and unuseddrugs. Ask your nurse to give you one when you are discharged.2.Visit a local take-back location: Many local pharmacies and police departments have programs that collect old and unwanted prescriptiondrugs. Call your local pharmacy or go to http://bit.ly/8K3In1d to find one close to you.3.Make use of household items: Use cat litter or old coffee grounds to dispose medications if other options arenot available. Mix your drugs with these household products, seal them in an airtight container andthrow it into the garbage. Call [facility]: [phone] to be sure your drugs can be disposed of in this way. Some medicines may require a different approach.4.Never flush your medications down the toilet. IF YOU HAVE BEEN PRESCRIBED AN OPIOIDS FOR PAIN If you have been prescribed an opioid (such as hydrocodone, oxycodone or morphine), it is critical to understand the possible side effects and risks of opioid pain medications. Even when taken as directed, opioids can have several side effects including: Tolerance, meaning you might need to take more of a medication for the same pain relief. Nausea, vomiting and/or constipation. Sleepiness, dizziness, dry mouth, confusion, depression or itching. Physical dependence, meaning you have withdrawal symptoms when a medication is stopped ? this can develop within a few days. KNOW YOUR RESPONSIBILITIES It is important to know exactly how much and how often to take the opioid pain medications you are prescribed. Never take opioids in higher amounts or more often than prescribed. Do not combine opioids with alcohol or other drugs that cause drowsiness, such as benzodiazepines, also known as benzos,including diazepam and alprazolam, muscle relaxants or sleep aids. Never sell or share prescriptionopioids. This is illegal. Store opioids in a secure place and out of reach of others (including children, family, friends and visitors). The last page(s) of this document has been signed and retained as a CHART COPY Signatures Patient Education Materials Fracture, Finger, Closed Medication Leaflets My discharge plan and instructions have been reviewed and explained to me and ITENA GABRYELLE Eunderstand my current condition and have read and understand these discharge instructions. I have received a written copy of the plan/instructions. If I have questions, I am aware that I should contact my doctor. 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 HISTORY: ORDERING SYSTEM PROVIDED HISTORY: Reason for Exam: distal phalanx crush injury FINDINGS: There is question of a small cortical buckle seen of the anterior base of the distal phalanx of the 4th digit. Soft tissue swelling of the 4th digit is noted. No other acute process is identified. IMPRESSION: Question small cortical buckle of the anterior base of the distal phalanx of the 4th digit. Interpreted by: Levar Higgins MD Preliminary Report By: Levar Higgins MD Electronically signed By Levar Higgins MD Dictated Date: 12/31/2021 2:34:36 PM Prelim Date: 12/31/2021 2:36:53 PM Sign Date: 12/31/2021 2:36:53 PM [facility] ORIGINAL EXAMINATION: THREE XRAY VIEWS OF THE LEFT FINGERS 12/31/2021 2:22 pm COMPARISON: None. HISTORY: ORDERING SYSTEM PROVIDED HISTORY: Reason for Exam: distal phalanx crush injury FINDINGS: There is question of a small cortical buckle seen of the anterior base of the distal phalanx of the 4th digit. Soft tissue swelling of the 4th digit is noted. No other acute process is identified. IMPRESSION: Question small cortical buckle of the anterior base of the distal phalanx of the 4th digit. Interpreted by: Levar Higgins MD Preliminary Report By: Levar Higgins MD Electronically signed By Levar Higgins MD Dictated Date: 12/31/2021 2:34:36 PM Prelim Date: 12/31/2021 2:36:53 PM Sign Date: 12/31/2021 2:36:53 PM Ordering Provider: [facility]06-29-2022 Note ORIGINAL EXAMINATION: THREE XRAY VIEWS OF THE LEFT FINGERS 12/31/2021 2:22 pm COMPARISON: None. HISTORY: ORDERING SYSTEM PROVIDED HISTORY: Reason for Exam: distal phalanx crush injury FINDINGS: There is question of a small cortical buckle seen of the anterior base of the distal phalanx of the 4th digit. Soft tissue swelling of the 4th digit is noted. No other acute process is identified. IMPRESSION: Question small cortical buckle of the anterior base of the distal phalanx of the 4th digit. Interpreted by: Levar Higgins MD Preliminary Report By: Levar Higgins MD Electronically signed By Levar Higgins MD Dictated Date: 12/31/2021 2:34:36 PM Prelim Date: 12/31/2021 2:36:53 PM Sign Date: 12/31/2021 2:36:53 PM Ordering Provider: [facility]06-29-2022 Note ORIGINAL EXAMINATION: THREE XRAY VIEWS OF THE LEFT FINGERS 12/31/2021 2:22 pm COMPARISON: None. HISTORY: ORDERING SYSTEM PROVIDED HISTORY: Reason for Exam: distal phalanx crush injury FINDINGS: There is question of a small cortical buckle seen of the anterior base of the distal phalanx of the 4th digit. Soft tissue swelling of the 4th digit is noted. No other acute process is identified. IMPRESSION: Question small cortical buckle of the anterior base of the distal phalanx of the 4th digit. Interpreted by: Levar Higgins MD Preliminary Report By: Levar Higgins MD Electronically signed By Levar Higgins MD Dictated Date: 12/31/2021 2:34:36 PM Prelim Date: 12/31/2021 2:36:53 PM Sign Date: 12/31/2021 2:36:53 PM Ordering Provider: [facility]05-15-2022 Hospital Discharge instructions Patient Education 11/16/2021 21:56:12 Vomiting (Adult) Vomiting (Adult) Vomiting is a common symptom that may be due to different causes. These include gastroenteritis ( stomach flu ), food poisoning and gastritis. There are other more serious causes of vomiting which may be hard to diagnose early in the illness. Therefore, it is important to watch for the warning signs listed below. The main danger from repeated vomiting is dehydration. This is due to excess loss of water and minerals from the body. When this occurs, your body fluids must be replaced. Home care If symptoms are severe, rest at home for the next 24 hours. Because your symptoms may be from an infection, wash your hands often and well. If soap and water are not available, use alcohol-based data compiler to keep from spreading the infection to others. Wash your hands for at least 20 seconds. Humming the happy birthday song twice while you wash is aneasy way to make sure you've washed for 20 seconds. Wash your hands after using the toilet, before and after preparing food, before eating food, after changing a diaper, cleaning a wound, caring for a sick person, and blowing your nose, coughing, or sneezing. You should also wash your hands after caring for someone who is sick, touching pet food, ortreats, and touching an animal, or animal waste. You may use acetaminophen or NSAID medicines like ibuprofen or naproxen to control fever, unless another medicine was prescribed. If you have chronic liver or kidney disease or ever had a stomach ulcer or gastrointestinal bleeding, talk with your doctor before using these medicines. Aspirin should never be used in anyone under 18 years of age who is ill with a fever. It may cause severe liver damage. Don't use NSAID medicines if you are already taking one for another condition (like arthritis) or are on aspirin (such as for heart disease, or after a stroke) Don't use tobacco and or drink alcohol, which may worsen your symptoms. If medicines for vomiting were prescribed, take as directed. Once vomiting stops, then follow these guidelines: During the first 12 to 24 hours follow the diet below: Fruit juices. Apple, grape juice, clear fruit drinks, and electrolyte replacement drinks. Beverages. Soft drinks without caffeine; mineral water (plain or flavored), decaffeinated tea and coffee. Soups. Clear broth and bouillon Desserts. Plain gelatin, ice pops, and fruit juice bars. As you feel better, you may add 6 to 8 ounces of yogurt per day. During the next 24 hours you may add the following to the above: Hot cereal, plain toast, bread, rolls, crackers Plain noodles, rice, mashed potatoes, chicken noodle or rice soup Unsweetened canned fruit such as applesauce, bananas (avoid pineapple and citrus) Limit caffeine and chocolate. No spices or seasonings except salt. During the next 24 hours: Gradually resume a normal diet, as you feel better and your symptoms lessen. Follow-up care Follow up with your healthcare provider, or as advised. When to seek medical advice Call your healthcare provider right away if any of these occur: Constant right-sided lower belly pain or increasing general belly pain Continued vomiting (unable to keep liquids down) for 24 hours Vomiting blood or coffee grounds Swollen belly Frequent diarrhea (more than 5 times a day); blood (red or black color) or mucus in diarrhea Reduced urine output or extreme thirst Weakness, dizziness or fainting Unusually drowsy or confused Fever of 100.4 F (38 C) oral or higher, or as directed Yellow color of the eyes or skin [id number] [employer]. [address] [place] [address]. All rights reserved. This information is not intended as a substitute for professional medical care. Always follow yourhealthcare professional's instructions. Follow Up Care 11/16/2021 20:29:03 With:CHAZ RAO DO Address: [address] [place] [address] [phone] When:2-4 days [facility] Evaluation + Plan note No data available for this section [facility] Evaluation + Plan note Future Appointments Appointment Date:04/10/2022 02:05:00 PM Scheduled Provider:CHAZ RAO DO Location:[facility] Appointment Type:PC OV [facility] Discharge instructions No data available for this section [facility] Note* SHELLY CHAPMAN MD: SIGN, VERIFY Event Display: EKG [ED AOH] - CV Authored Date: [id number] [facility] Progress note No data available for this section [facility] Summary Purpose Family History No Family History Records Found Advance Directives No Advanced Directives Records Found Additional Source Comments Care Team (unrecognized sect ion and content) Care Team Personnel Name: PHYSICIAN, NONE Position: Physician Member Role: Primary Care Physician Care Team Related Persons Name: VIRAJ GOODWIN Name: VIRAJ GOODWIN Name: BUDDY VIRAJ Care Team Personnel Name: PHYSICIAN, NONE Position: Physician Member Role: Primary Care Physician Name: Millicent Chapman RN Position: AO RN Member Role: RN Name: SHELLY CHAPMAN MD Position: ED Physician Member Role: ED Physician Address: Address: [place] [id number] [place] [address] Care Team Related Persons Name: BUDDYVIRAJ LUEVANO Name: BUDDYVIRAJ Name: VIRAJ GOODWIN Care Team Personnel Name: PHYSICIAN, NONE Position: Physician Member Role: Primary Care Physician Care Team Related Persons Name: VIRAJ GOODWIN Name: VIRAJ GOODWIN Name: VIRAJ GOODWIN Care Team Personnel Name: CHAZ RAO DO Position: P4 Physician - Primary Care Med Service: Active Provider Member Role: Primary Care Physician Address: Address: [address] Care Team Related Persons Name: VIRAJ GOODWIN Name: BUDDYVIRAJ LUEVANO Name: BUDDY VIRAJ Care Team Personnel Name: CHAZ RAO DO Position: P4 Physician - Primary Care Med Service: Active Provider Member Role: Primary Care Physician Address: Address: [address] Care Team Related Persons Name: BUDDYVIRAJ LUEVANO Name: VIRAJ GOODWIN Name: VIRAJ GOODWIN INFORMATION SOURCE (unrecogn ized section and content) FOR RECORDS PERTAINING TO PATIENTS WHO ARE OR HAVE BEEN ENROLLED IN A CHEMICAL DEPENDENCY/SUBSTANCEABUSE PROGRAM, SOME INFORMATION MAY BE OMITTED. This clinical summary was aggregated from multiple sources. Caution should be exercised in using it in the provision of clinical care. This summary normalizes information from multiple sources, and as a consequence, information in this document may materially change the coding, format and clinical context of patient data. In addition, data may be omitted in some cases. CLINICAL DECISIONS SHOULD BE BASED ON THE PRIMARY CLINICAL RECORDS. [facility]. provides no warranty or guarantee of the accuracy or completeness of information in this document.
[2023-07-13 09:10] VITALS: BP 124/77; PULSE 62; RESP 15; O2SAT 98
== END 2023-07-13 09:12 | disposition home or self-care (01) ==
PROVIDERS: Emergency Provider Emergency Medicine; PCP Family Medicine; Visit Provider Emergency Medicine
DX: M54.32 Sciatica, left side (principal); Z87.891 Personal history of nicotine dependence; K21.9 Gastro-esophageal reflux disease without esophagitis; Z79.899 Other long term (current) drug therapy; W17.89XA Other fall from one level to another, initial encounter; Y93.89 Activity, other specified
CPT/HCPCS: 72100; 99283

== ENCOUNTER 2023-08-04 05:46 | Day surgery (SDC) | payer BC, SELFPAY ==
--- NOTE | 2023-08-04 | EGD_PTH ---
PATHOLOGY RESULTS PATIENT: KELLEN MADSEN LOC: EN U#:[id number] AGE/SX: ROOM: RE08/04/[address]: Dr. Aman Arredondo DO : 1990 BED: DIS: 08/04/2023 SPEC #: [id number] RECD: 08/04/23 11:29 STATUS: RICHARDSON ANDERS #: [id number] KINJAL: 08/04/23 00:[address]: Aman Arredondo DEPT: SURGICAL PATHOLOGY RECD BY: Omayra Prescott ENTERED: 08/04/23 11:31 SP TYPE: EGD BIOPSY PIPPA DR: Dr. Donald Barlow DO Tissues: Gastric mucous membrane Procedures: Surgery Specimen Level IV HEADER OPERATION: EGD - PH probe biopsy PRE-OP DIAGNOSIS: Abdominal pain, GERD TISSUE SUBMITTED: Gastric antrum, H. pylori and path MICROSCOPIC DIAGNOSIS Gastric antrum, biopsy: Moderate chronic active gastritis. See comment. SJ:[place] 08/05/2023 COMMENT The results of immunohistochemistry for Helicobacter pylori will be reported separately ([id number]). MICROSCOPIC DESCRIPTION Slides are reviewed. GROSS DESCRIPTION Received in fixative is one container labeled with the patient's name and designated gastric antrum biopsy. The specimen consists of two irregular fragments of light zaldivar soft tissue that in aggregate measure 0.6 x 0.3 x 0.1 cm. The specimen is totally submitted in one cassette. / JAUN:[place] 08/04/2023 TC:2 CPT: 74221
--- OUTSIDE RECORDS SUMMARY | 2023-08-04 06:03 | XMS RPT_ITS | CCD ---
Author Name Unknown Address [address] [place] [address] Organization [facility] Care Team Providers Care Immunohematologist Name Role Phone PHYSICIAN, NONE Primary Care Physician Unavailab le MAIRA DO, DR WARE A Primary Care Physician MEG RAIN Attending Unavailable PHYSICIAN, NONE Primary [...] DO, DR CHAZ Romo Primary Care Physician Allergies Allergy Classification Reported Allergen(s) Allergy Type Date of Onset Reaction(s) Facility (6 sources) Penicillin; Translations: [penicillins] Drug Allergy [facility] Medications Current Medications Medication Drug Class(es) Dates [...] 02-26-2022 10:31-0400 Body temperature 97.88 [degF] МАРИЯ PWRF [facility] 02-26-2022 10:31-0400 Diastolic blood pressure 59 mm[Hg] [facility] 02-26-2022 10:31-0400 Heart rate 54 /min [facility] [address] [place] [address] 02-26-2022 10:31-0400 Mean blood pressure 74 mm[Hg] МАРИЯ PLUNK DO [address] [place] [address] 02-26-2022 10:31-0400 Respiratory rate 14 /min МАРИЯ PLUNK DO [address] [place] [address] 02-26-2022 10:31-0400 Systolic blood pressure 105 mm[Hg] МАРИЯ PLUNK DO [address] [place] [address] 02-26-2022 06:57-0400 Body temperature 97.88 [degF] МАРИЯ PLUNK DO [address] [place] [address] 02-26-2022 06:57-0400 Diastolic blood pressure 68 mm[Hg] МАРИЯ PLUNK DO [address] [place] [address] 02-26-2022 06:57-0400 Heart rate 48 /min МАРИЯ PLUNK DO [address] [place] [address] 02-26-2022 06:57-0400 Mean blood pressure 83 mm[Hg] МАРИЯ PLUNK DO [address] [place] [address] 02-26-2022 06:57-0400 Respiratory rate 16 /min МАРИЯ PLUNK DO [address] [place] [address] 02-26-2022 06:57-0400 Systolic blood pressure 112 mm[Hg] МАРИЯ PLUNK DO [address] [place] [address] 02-26-2022 03:40-0400 Body temperature 98.42 [degF] МАРИЯ PLUNK DO [address] [place] [address] 02-26-2022 03:40-0400 Diastolic blood pressure 61 mm[Hg] МАРИЯ PLUNK DO [address] [place] [address] 02-26-2022 03:40-0400 Heart rate 42 /min МАРИЯ PLUNK DO [address] [place] [address] 02-26-2022 03:40-0400 Respiratory rate 16 /min МАРИЯ PLUNK DO [address] [place] [address] 02-26-2022 03:40-0400 Systolic blood pressure 107 mm[Hg] МАРИЯ PLUNK DO [facility] 02-25-2022 20:00-0400 Mean blood pressure 81 mm[Hg] МАРИЯ PLUNK DO [facility] 02-25-2022 19:32-0400 Body height 160 cm МАРИЯ PLUNK DO [facility] 02-25-2022 19:32-0400 Body weight 67.3 kg МАРИЯ PLUNK DO [facility] 02-25-2022 19:32-0400 Body weight 26.29 kg/m2 МАРИЯ PLUNK DO [facility] 02-25-2022 14:39-0400 Heart rate 42 /min SHELLY CHAPMAN MD [facility] 02-25-2022 12:27-0400 Diastolic blood pressure 73 mm[Hg] SHELLY CHAPMAN MD [facility] 02-25-2022 12:27-0400 Heart rate 44 /min SHELLY CHAPMAN MD [facility] 02-25-2022 12:27-0400 Systolic blood pressure 105 mm[Hg] SHELLY CHAPMAN MD [facility] 02-25-2022 10:23-0400 Body height 157.5 cm SHELLY CHAPMAN MD [facility] 02-25-2022 10:23-0400 Body temperature 97.88 [degF] SHELLY CHAPMAN MD [facility] 02-25-2022 10:23-0400 Body weight 71.7 kg SHELLY CHAPMAN MD [facility] 02-25-2022 10:23-0400 Diastolic blood pressure 72 mm[Hg] SHELLY CHAPMAN MD [facility] 02-25-2022 10:23-0400 Heart rate 53 /min SHELLY CHAPMAN MD [facility] 02-25-2022 10:23-0400 Respiratory rate 20 /min SHELLY CHAPMAN MD [facility] 02-25-2022 10:23-0400 Systolic blood pressure 137 mm[Hg] SHELLY CHAPMAN MD [facility] 12-31-2021 13:52-0400 Body temperature 98.6 [degF] MEG DURESKA DO [facility] 12-31-2021 13:52-0400 Diastolic blood pressure 59 mm[Hg] MEG DURESKA DO [facility] 12-31-2021 13:52-0400 Heart rate 63 /min MEG DURESKA DO [facility] 12-31-2021 13:52-0400 Respiratory rate 16 /min MEG DURESKA DO [facility] 12-31-2021 13:52-0400 Systolic blood pressure 100 mm[Hg] MEG DURESKA DO [facility] 11-16-2021 22:09-0400 Diastolic blood pressure 63 mm[Hg] ANITA RAMOS MD [facility] 11-16-2021 22:09-0400 Heart rate 60 /min ANITA RAMOS MD [facility] 11-16-2021 22:09-0400 Respiratory rate 18 /min ANITA RAMOS MD [facility] 11-16-2021 22:09-0400 Systolic blood pressure 100 mm[Hg] ANITA RAMOS MD [facility] 11-16-2021 20:31-0400 Body temperature 98.24 [degF] ANITA RAMOS MD [facility] 11-16-2021 20:31-0400 Diastolic blood pressure 88 mm[Hg] ANITA RAMOS MD [facility] 11-16-2021 20:31-0400 Heart rate 73 /min ANITA RAMOS MD [facility] 11-16-2021 20:31-0400 Respiratory rate 16 /min ANITA RAMOS MD [facility] 11-16-2021 20:31-0400 Systolic blood pressure 147 mm[Hg] ANITA RAMOS MD [facility] Encounters Encounter Date Encounter Type Care Provider Facility Start: 03-31-2022 End: 04-01-[address] CHAZ RAO DO Facility:B Start: 03-31-2022 End: 03-31-[address] CHAZ RAO DO [facility] Start: 03-10-2022 End: 03-11-[address] CHAZ RAO DO Facility:B Start: 03-10-2022 End: 03-10-[address] CHAZ RAO DO [facility] Start: 02-25-2022 End: 02-26-2022 Evaluation and management of inpatient JOSE VERMA MD Facility:A Start: 02-25-2022 End: 02-26-2022 Evaluation and management of inpatient МАРИЯ YORK DO [facility] Start: 02-25-2022 End: 02-25-2022 Emergency department patient visit SHELLY CHAPMAN MD Facility:[facility] Start: 02-25-2022 End: 02-25-2022 Emergency department patient visit SHELLY CHAPMAN MD [facility] Start: 12-31-2021 End: 12-31-2021 Emergency department patient visit MEG RAIN Facility:B Start: 12-31-2021 End: 12-31-2021 Emergency department patient visit MEG RAIN DO [facility] Start: 11-16-2021 End: 11-17-2021 Emergency department patient visit NONE PHYSICIAN Facility:B Start: 11-16-2021 End: 11-16-2021 Emergency department patient visit ANITA RAMOS MD [facility] Procedures Date Procedure Procedure Detail Performing Clinician Knee region structure (body structure) ANITA RAMOS MD Immunizations Immunization Date Immunization Notes Care Provider Fa cility 12-31-2021 tetanus toxoid, redu yue diphtheria toxoid, and acellular pertussis vaccine, adsorbed MEG RAIN DO [facility] Payers Date Payer Category Payer Unknown [id number] 2021 Unknown [id number] 2021 Self-pay 1991 Unknown [id number] 2.16.8 [id number] 1991 Unknown [id number] 2.16.8 [id number] 1991 Unknown [id number] 2.16.8 [id number] 1991 Unknown [id number] 2.16.8 [id number] 1991 Unknown [id number] 2.16.8 [id number] 1991 Unknown [id number] 2.16.8 [id number] Social History Date Type Detail Facility Tobacco smoking status Smokes to bacco daily (finding) [facility] Sex Assigned At Sex [facility] Start: 12-31-2021 Tobacco smoking status Never s moked tobacco (finding) [facility] Start: 03-05-2022 Tobacco smoking status Ex-smoker (fi nding) [facility] Functional Status Date Assessment Result Facility 02-26-2022 Functional Status Room check performed [facility] 02-26-2022 Functional Status [facility] 02-26-2022 Functional Status [facility] 02-26-2022 Functional Status [facility] 02-25-2022 Functional Status Independent [facility] 12-31-2021 Functional Status Standard Safet y ID band on, Allergy Band on, Call device within reach, Bed in low position, Wheels locked, Upper/Half-Length side-rails up, Bedside Cart Locked, Safety level maintained [facility] 11-16-2021 Functional Status [facility] 11-16-2021 Functional Status [facility] Mental Status Date Assessment Result Facility 02-26-2022 Mental Status Orientation Oriented x 4 [facility] 02-25-2022 Mental Status [facility] 12-31-2021 Mental Status Orientation Oriented x 4 [facility] 12-31-2021 Mental Status [facility] 11-16-2021 Mental Status [facility] 11-16-2021 Mental Status [facility] Clinical Notes 11-16-2021 to 02-26-2022 Note [...] JOSE VERMA MD on 02/26/2022 03:50 PM [facility] 02-26-2022 Hospital Discharge instructions Patient Education 02/26/2022 16:52:47 Bradycardia, Adult Bradycardia, Adult Bradycardia is a kgcgkx-rqln-nzdssw heartbeat. A normal resting heart rate for [...] care provider. Follow a heart-healthy diet. A pet nutrition specialist (dietitian) can help educate you about healthy [...] hard liquor (44 mL). General instructions Take efbs-syl-ldshjfl and prescription medicines only as told by [...] pain. ?Trouble breathing. Summary Bradycardia is a relcfb-qgsn-txyxzc heartbeat. With bradycardia, the resting heart rate [...] 03/13/2003 Document Revised: 01/02/2019 Document Reviewed: 11/30/2018 [employer] Patient Education 2020 [employer]. Follow Up Care 02/25/2022 16:01:07 With:Follow up with primary care provider Address:Unknown When:1-2 days [facility] 02-26-2022 Note Discharge Instructions Thank you for allowing [facility] to assist you with your healthcare needs. [...] Education Materials Bradycardia, Adult Bradycardia is a culsxh-uhqx-faiykh heartbeat. A normal resting heart rate for [...] care provider. Follow a heart-healthy diet. A pet nutrition specialist (dietitian) can help educate you about healthy [...] hard liquor (44 mL). General instructions Take tghd-zon-wjpuwnz and prescription medicines only as told by [...] ? Trouble breathing. Summary Bradycardia is a xdfrqh-rqpc-thzcxp heartbeat. With bradycardia, the resting heart rate [...] 03/13/2003 Document Revised: 01/02/2019 Document Reviewed: 11/30/2018 [employer] Patient Education 2020 [employer]. Additional Information VACCINATE! IT SAVES LIVES! Members of the community who have not yet received the COVID-19 vaccine and would like to receive it can visit one of [facility] vaccine clinics. There are many vaccine clinic locations within the [facility]. For locations and available times, please visit [email or web address]/. It is important to note that some COVID mobile vaccine clinics are held outdoors and may be canceled in rainy or stormy conditions. To learn more about pediatric vaccinations (ages 5-11), we invite you to visit the [facility] webpage. https://www.Reduxs.org/pag es/7925-Yrwnp-Jtnpkuqtsws-Frequent lj-Qrpwl-Wrzncwwwc.html To learn more about the COVID-19 vaccine, we invite you to visit the [employer] website for a list of frequently asked questions. [email or web address]/assets/Patient r-nwd-Wmrhpafc/jcsnl-Ybazykt-Uejvw ently_Asked-Questions.pdf [employer] Patient Portal Access Instructions: Stay connected with your healthcare team and access your personal medical information anytime with the [facility] Patient Portal.If you would like a full copy of your medical records, please contact the [facility] Medical Records Department, Wednesday through Wednesday between 8a.m. and 4:30p.m. Please follow the directions below to access the portal: 1.Access the email account you provided upon registration to the [facility].2.Look for an invitation email from [facility].3.Open the email and access the invitation link: Accept Invitation to [facility]4.Fill in the required palma to create your account. Sign into [email or web address] with your username and password that you [...] you will allow to register on the [facility] Patient Portal for access to your information. You can also access the [employer] Patient Portal on the [employer] sherrell. Simply click on Health Records under Health Data and then click on the SavingStar logo. HOW TO SAFELY DISPOSE OF PRESCRIPTION [...] Call your local pharmacy or go to http://Edtrips.Cuponomia/8T7Dd3h to find one close to you.3.Make use of household items: Use cat litter or old coffee grounds to dispose medications if other options are not available. Mix your drugs with these household products, seal them in an airtight container and throw it into the garbage. Call [facility]: [phone] to be sure your drugs can be [...] aware that I should contact my doctor. 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/Associate Director Of Sales Signature: Date/Time: Relationship to Patient: ___ Witness Name/Signature: Date/Time: [facility] 02-26-2022 Discharge summary [facility] Medicine Discharge summary Date of Admission: [...] MIGUEL OROURKE MD on 02/26/2022 03:54 PM [facility] 02-26-2022 Respiratory therapy Hospital Progress note Respiratory [...] Pamela Renee RT on 02/26/2022 03:48 PM [facility] 02-26-2022 Note [facility] Hospitalist Progress Note Location: [place] [address] Status: General Medicine Subjective: KELLEN MADSEN is [...] MIGUEL OROURKE MD on 02/26/2022 01:12 PM [facility] 02-26-2022 Cardiology Consult note Date of Service [...] JOSE VERMA MD on 02/26/2022 03:50 PM [facility] 02-26-2022 History and physical note Date of [...] she went to the emergency department at [place] In the department Patient tested positive for COVID Found to be bradycardic in the 40s EKG sinus bradycardia Chest x-ray had no acute process Troponin unremarkable BNP 147 BMP unremarkable CBC significant for thrombocytopenia 128 ED physician spoke to cardiology on-call recommended admission to the hospital service Report was taken by my colleague Dr. York (confirmed that there is a typo that the shade hanger recommended admission to the hospital service) upon [...] LING BRIGGS MD on 02/25/2022 08:38 PM [facility] 02-25-2022 Note ORIGINAL EXAMINATION: CTA OF THE [...] Sign Date: 02/25/2022 10:21:39 PM Ordering Provider: [facility] 02-25-2022 Note ORIGINAL EXAMINATION: CTA OF THE [...] Sign Date: 02/25/2022 10:21:39 PM Ordering Provider: [facility] 02-25-2022 History and physical note Date of [...] she went to the emergency department at [place] In the department Patient tested positive for COVID Found to be bradycardic in the 40s EKG sinus bradycardia Chest x-ray had no acute process Troponin unremarkable BNP 147 BMP unremarkable CBC significant for thrombocytopenia 128 ED physician spoke to cardiology on-call recommended admission to the hospital service Report was taken by my colleague Dr. York (confirmed that there is a typo that the shade hanger recommended admission to the hospital service) upon [...] LING BRIGGS MD on 02/25/2022 08:38 PM [facility] 31-year-old female with no s ignificant past [...] lower extremity pain to rule out DVT [facility] 08-24-2022 Note ORIGINAL EXAMINATION: ONE XRAY VIEW [...] Sign Date: 02/25/2022 11:34:24 AM Ordering Provider: [facility]08-24-2022 Note ORIGINAL EXAMINATION: ONE XRAY VIEW OF [...] Sign Date: 02/25/2022 11:34:24 AM Ordering Provider: [place] [address]-24-2022 SARS-CoV-2 (COVID-19) RNA DENISE+probe Ql (Nph)Positive *ABN* (02/25/22 10:39 AM)AO Auto Urine [id number] Hospital Discharge instructions Patient Education 12/31/2021 14:46:38 [...] wet, you can dry it with a humanities department chair. If nneka tape was put on and [...] or as directed by your healthcare provider [phone] [employer] [place] [address], [place] [address]. All rights reserved. This information is not intended as a substitute for professional medical care. Always follow yourhealthcare professional's instructions. Follow Up Care 12/31/2021 13:25:37 With:malachi Address: When:2-4 days With:KENJI REYES MD Address: [address] [place] [phone] When:2-4 days With:Call AMB New Pt. Refferral [phone] Address:Unknown When:2-4 days [facility] 06-29-2022 Emergency department Discharge summary Discharge Instructions Thank you for allowing [facility] to assist you with your healthcare needs. [...] MD When Within 2-4 days Where: [address] [place] [address]- [phone] Follow Up with Call PHANI Mendez PtKyle Refferral [phone] When Within 2-4 days Allergies penicillin Medications [...] wet, you can dry it with a humanities department chair. If nneka tape was put on and [...] or as directed by your healthcare provider [phone] [employer]. [address] [place] [address]. All rights reserved. This information is not intended as a substitute for professional medical care. Always follow yourhealthcare professional's instructions. Additional Information VACCINATE! IT SAVES LIVES! Members of the community who have not yet received the COVID-19 vaccine and would like to receive it can visit one of [facility] vaccine clinics. There are many vaccine clinic locations within the [facility]. For locations and available times, please visit www.[email or web address].[place].org. It is important to note that some COVID mobile vaccine clinics are held outdoors and may be canceled in rainy orstormy conditions. To learn more about pediatric vaccinations (ages 5-11), we invite you to visit the [facility] webpage. https://www.[facility].org/pages/5867-Tjbgq-Itkobzepudl-Mmymdqcqfa-Fsiox-Ddf stions.htmlTo learn more about the COVID-19 vaccine, we invite you to visit the [facility] website for a list of frequently asked questions. https://[email or web address]/assets/Qtzutizo-avc-Nzlkkrwe/moqqo-Dqlldiw-Urqqzpflrf _Asked-Questions.pdf [facility] Patient Portal Access Instructions: Stay connected with your healthcare team and access your personal medical information anytime with the [facility] Patient Portal. If you would like a full copy of your medical records please contact the [facility] Medical Records Department Wednesday through Wednesday between 8a.m. and 4:30p.m. Please follow the directions below to access the portal: 1.Access the email account you provided upon registration to the [facility].2.Look for an invitation email from [facility].3.Open the email and access the invitation link: Accept Invitation to [facility]4.Fill in the required palma to create your account. Sign into [email or web address] with your username and password that you [...] you will allow to register on the [facility] Patient Portal for access to your information. You can also access the [facility] Patient Portal on the [employer]. Simply click on Health Records under [facility] and then click on the SavingStar logo. HOW TO SAFELY DISPOSE OF PRESCRIPTION [...] Call your local pharmacy or go to http://Edtrips.Cuponomia/6G1Mk2e to find one close to you.3.Make use of household items: Use cat litter or old coffee grounds to dispose medications if other options arenot available. Mix your drugs with these household products, seal them in an airtight container andthrow it into the garbage. Call [facility]: [phone] to be sure your drugs can be [...] aware that I should contact my doctor. Patient/Associate Director Of Sales Signature: Date/Time: Relationship to Patient: Witness Name/Signature: Date/Time: [facility]06-29-2022 Emergency department Discharge summary Discharge Instructions Thank you for allowing [facility] to assist you with your healthcare needs. The following is importantdischarge information regarding your hospital visit. Diagnosis from Today's Visit Finger injury - Minor What to Do Next Instructions from Your Care Team No qualifying data available. Post Acute Orders No qualifying data available. You Need to Schedule the Following Appointments Follow Up with KENJI REYES MD When Within 2-4 days Where: [address] [place] [address]- [phone] Follow Up with Call AMB New Pt. Refferral [phone] When Within 2-4 days Allergies penicillin Medications [...] wet, you can dry it with a humanities department chair. If nneka tape was put on and [...] or as directed by your healthcare provider [phone] [employer]. [address] [place] [address]. All rights reserved. This information is not intended as a substitute for professional medical care. Always follow yourhealthcare professional's instructions. Additional Information VACCINATE! IT SAVES LIVES! Members of the community who have not yet received the COVID-19 vaccine and would like to receive it can visit one of [facility] vaccine clinics. There are many vaccine clinic locations within the [facility]. For locations and available times, please visit www.[email or web address].org. It is important to note that some COVID mobile vaccine clinics are held outdoors and may be canceled in rainy orstormy conditions. To learn more about pediatric vaccinations (ages 5-11), we invite you to visit the [facility] webpage. https://www.[facility].org/pages/0328-Biqae-Jnurwagwnoc-Peyniwutkb-Nwjqm-Yzj stions.htmlTo learn more about the COVID-19 vaccine, we invite you to visit the [facility] website for a list of frequently asked questions. [email or web address]/assets/Tsnzoksg-jwx-Pbzvrnhp/fhsza-Hufedcq-Foqkplkhyb _Asked-Questions.pdf [facility] Patient Portal Access Instructions: Stay connected with your healthcare team and access your personal medical information anytime with the [facility] Patient Portal. If you would like a full copy of your medical records please contact the [facility] Medical Records Department Wednesday through Wednesday between 8a.m. and 4:30p.m. Please follow the directions below to access the portal: 1.Access the email account you provided upon registration to the [facility].2.Look for an invitation email from [facility].3.Open the email and access the invitation link: Accept Invitation to [facility]4.Fill in the required palma to create your account. Sign into [email or web address] with your username and password that you [...] you will allow to register on the [facility] [employer] Patient Portal for access to your information. You can also access the [facility] Patient Portal on the Cas[employer]. Simply click on Health Records under PolleverywhereData and then click on the [employer]ine logo. [...] Call your local pharmacy or go to http://bit.ly/8O6Jz2l to find one close to you.3.Make use of household items: Use cat litter or old coffee grounds to dispose medications if other options arenot available. Mix your drugs with these household products, seal them in an airtight container andthrow it into the garbage. Call [facility]: [phone] to be sure your drugs can be [...] aware that I should contact my doctor. Patient/Associate Director Of Sales Signature: Date/Time: Relationship to Patient: Witness Name/Signature: Date/Time: [facility]06-29-2022 Note ORIGINAL EXAMINATION: THREE XRAY VIEWS OF [...] Date: 12/31/2021 2:36:53 PM [facility] Note ORIGINAL EXAMINATION: THREE XRAY VIEWS OF [...] Date: 12/31/2021 2:36:53 PM Ordering Provider: ME[facility] Note ORIGINAL EXAMINATION: THREE XRAY VIEWS OF [...] Sign Date: 12/31/2021 2:36:53 PM Ordering Provider: [facility]06-29-2022 Note ORIGINAL EXAMINATION: THREE XRAY VIEWS [...] Sign Date: 12/31/2021 2:36:53 PM Ordering Provider: [facility]05-15-2022 Hospital Discharge instructions Patient Education 11/16/2021 [...] and water are not available, use alcohol-based mark up designer to keep from spreading the infection to [...] Yellow color of the eyes or skin [phone] [employer]. [address] [place] [address]. All rights reserved. This information is not intended as a substitute for professional medical care. Always follow yourhealthcare professional's instructions. Follow Up Care 11/16/2021 20:29:03 With:CHAZ RAO DO Address: [address] [place] [address] [phone] When:2-4 days [facility] Evaluation + Plan note No data available for this section [facility] Evaluation [facility] Plan note Future Appointments Appointment Date:04/10/2022 02:05:00 PM Scheduled Provider:CHAZ RAO DO Location:[facility] Appointment Type:PC OV [facility] Discharge instructions No data available for this section [facility] Note* SHELLY CHAPMAN MD: SIGN, VERIFY Event Display: EKG [ED AOH] - CV Authored Date: [id number] [facility] Progress note No data available for this section [facility] Summary Purpose Family History No Family History [...] Physician Member Role: ED Physician Address: Address: [place] [id number] [place] [address] Care Team Related Persons Name: BUDDYVIRAJ LUEVANO [...] Primary Care Physician Address: Address: [address] Care Team Related Persons Name: VIRAJ GOODWIN Name: BUDDYVIRAJ LUEVANO Name: BUDDY VIRAJ Care Team Personnel Name: CHAZ RAO DO Position: P4 Physician - Primary Care Med Service: Active Provider Member Role: Primary Care Physician Address: Address: [address] Care Team Related Persons Name: BUDDYVIRAJ [...] BE BASED ON THE PRIMARY CLINICAL RECORDS. [facility]. provides no warranty or guarantee of the accuracy or completeness of information in this document.
[2023-08-04 06:33] LABS: Internal QC Validated? YES +Cl - CLEAR BKGD; Pregnancy, Urine Negative Negative
[2023-08-04 06:39] VITALS: BP 123/70; PULSE 66; RESP 16; TEMP 36.6; O2SAT 98; BMI 31.4
[2023-08-04] MEDS: Lactated Ringers 1,000 ML 15 ML IV (06:43)
--- NOTE | 2023-08-04 07:00 | IMM_PTH ---
PATHOLOGY RESULTS PATIENT: KELLEN MADSEN LOC: EN U#:[id number] AGE/SX: ROOM: RE08/04/[address]: Dr. Aman Arredondo DO : 1990 BED: DIS: 08/04/2023 SPEC #: [id number] RECD: 08/04/23 14:44 STATUS: RICH[place]DSON REQ #: [id number] KINJAL: 08/04/23 07:[address]: Aman Arredondo DEPT: IMMUNOHISTOCHEMISTRY RECD BY: Deneen Brumfield ENTERED: 08/04/23 14:45 SP TYPE: IMMUNO OTHR DR: Dr. Donald Barlow DO Tissues: Stomach, NOS Procedures: H Pylori (initial) PHYSICIAN & INSTITUTION [place] [id number] SPECIMEN INFORMATION: Tissue Source: Gastric antrum Clinical Info: Abdominal pain, GERD Specimen Number: [id number] CPT code: 21056 METHODOLOGY: Deparaffinized sections of prefer/formalin-fixed tissue or PAP/DQ stained slides are incubated with monoclonal/polyclonal antibodies/oligonucleotide probes. Localization is made via biotin free immunoperoxidase method. Appropriate controls are performed and reacted as expected. Results on target cell population are indicated in the following table: RESULTS: ANTIBODY / CLONE RESULT H Pylori (polyclonal) negative These tests were developed and their performance characteristics determined by [facility]. They may not have been cleared or approved by the U.S. Food and Drug Administration. The FDA has determined that such clearance or approval is not necessary. The above immunohistochemical/dualISH markers are ordered and reviewed by the Pathologist. INTERPRETATION: Gastric antrum, biopsy: Negative for Helicobacter pylori organisms. JAUN:[place] 08/05/2023
--- NOTE | 2023-08-04 07:07 | HP.PCM_ITS ---
History and Physical Date of Admission: 08/04/23 2 F who presents to the office today for follow up. [facility] ED presentation 11.21.21 with LLQ abdominal pain, nausea with emesis that is undigested food after many hours, dyspepsia/heartburn, small hard stools that alternate with postprandial urgent diarrhea without blood, mucous, oil. Imaging performed without acute findings; she was given Carafate, Zofran and magnesium citrate and discharged home.?CT abd/pel?without acute or chronic findings.? ? *BGI established 6.24.222 GERD diagnosed years prior and started on PPI that caused her to have an increase in symptoms; famotidine BID OTC was helpful, but is no longer helpful. Sleeping with her head significantly elevated is helpful. Since ED visit she has been doing a low fat, low acid, low spice diet; this has been met with moderate success. Zofran has been effective and is being taken PRN, last needed over the weekend. Marijuana intake is 1-2 times a week, feels this helps with nausea. Home life is agreeable to her with limited stress. FH mother with metastatic ovarian cancer spreading to liver requiring surgical intervention. ?Biochemical?CRP, LDH, ESR, PADMINI comp, ANCA, celiac, BEAR, gastrin, Cromagranin A without pertinent abnormalities.? IgE L2? 24Hr Urine, Stool calprotectin, elastase not performed.?Gastric emptying study 6.22?43.57 minutes (normal 12-56).? EGD 05.12.22?LA Grade A reflux esophagitis; non-bleeding gastric ulcer; erythematous mucosa of pylorus, gastritis with focal intestinal metaplasia, and duodenopathy without pathologic change.? Start sucralfate.? OV 05.27.22 She is having some nausea, gas but this has gotten better overall. Abdominal pain has much improved and is minimally cramping now. Emesis has resolved. Sucralfate has been helpful with the reduction of symptoms. ? Since starting Carafate she is also having some constipation and some dry mouth; increase of water is helpful with dry mouth. Drinking apple juice resolves constipation issue. ? ? Contact 1.11.23 with increased feelings of acid in her stool;?Start sucralfate ?as it was helpful previously?Stool?calprotectin and elastase WNL? ? OV 07.20.23- Pt continues to have abdominal pain and burning in chest. Also feels like acid is trapped in throat sometimes. No trouble swallowing. Says the Sucr alfate is not helping anymore and was giving her headaches. BM are once a day but feels acidy. No pain or blood with BM. ROS Const Constitutional: No fatigue ENT ENT: No difficulty swallowing Gastro GI: Positive for abdominal pain, bloating and heartburn; No belching, change in bowel habits, change in stool character, coffee ground emesis, constipation, cramping, diarrhea, difficulty swallowing, feeling full early, excessive flatus, incontinent of stools, Vomiting blood/hematemesis, Blood in stool, loose stools, Black,tarry stools, nausea/dyspepsia, pain with swallowing, vomiting or other Musc Musculoskeletal: No joint pain Skin Skin: No yellowing of the eye or itchy eyes Psych Psychiatric: No anxiety and No depression Endo Endocrine: No fatigue Aller/Imm Allergy/Immunologic: No itchy eyes Santana/Lymp Hematologic/Lymphatic: No easy bleeding or easy bruising Exam Const General: cooperative and comfortable Nutritional Appearance: average body habitus and well nourished [facility] Head: normal to inspection Ears: hearing grossly normal bilaterally Nose: external nose normal Face and sinus: normal facial exam Mouth: oral mucosae normal Throat: posterior oropharynx normal Eyes General: appearance normal, both eyes and all related structures Neck Neck: normal visual inspection Chest Chest palpation & inspection: normal inspection of the chest and normal palpation of entire chest wall Resp Effort & Inspection: normal respiratory effort Auscultation: Bilateral: Clear to Auscultation Cardio Palpation: normal PMI Rate: regular rate Rhythm: regular rhythm GI Inspection: normal to inspection Auscultation: normal bowel sounds Percussion: normal to percussion Palpation: no hepatosplenomegaly Skin General: no rashes or lesions noted Neuro General: patient alert Extrem General: normal to inspection Psych Affect: normal affect Quality Reporting Tobacco Screening ([facility] 138) Smoking Status: Former smoker Assessment and Plan Assessment and Plan (1) Abdominal pain: Status: Acute Qualifiers: Abdominal location: generalized Qualified Code(s): R10.84 - Generalized abdominal pain Plan: She will continue the Carafate for another 4 weeks and then stop. I wanted her to get Cherokee digestive enzymes and to take it 30 minutes before her biggest meals. We will repeat her upper endoscopy in approximately 1 year to assess her pylorus for intestinal metaplasia. I told her about 10 to 20% of the time that there is a reduction of the gastrointestinal metaplasia in the stomach almost completely. She is not having any problems with her hiatal hernia at this time. We will repeat upper endoscopy so we can evaluate her intestinal metaplasia. We will also get a cortisol, TSH, T3, T4, gastrin, protein electrophoresis, intrinsic factor and antiparietal cell antibody. We will also get a HIDA scan to see if she is having atypical gallbladder issues. (2) GERD (gastroesophageal reflux disease): Status: Acute Qualifiers: Esophagitis presence: without esophagitis Qualified Code(s): K21.9 - Gastro-esophageal reflux disease without esophagitis Plan: She is having a lot of refractory gastroesophageal reflux disease to antiacid therapy including PPI and H2 receptor paulette along with sulcal fate therapy. Therefore we will have her undergo Amezquita pH study to see if she would benefit from a possible fundoplication. We will also get a repeat gastric emptying study to see if this is more of a functional problem resulting in reflux disease. Orders: Orders CORTISOL SERUM Today K21.9 - Gastro-esophageal reflux disease without esophagitis, R10.9 - Unspecified abdominal pain Celiac Disease Profile Today K21.9 - Gastro-esophageal reflux disease without esophagitis, R10.9 - Unspecified abdominal pain Gastric Emptying Study Today K21.9 - Gastro-esophageal reflux disease without esophagitis, R10.9 - Unspecified abdominal pain Hepatobilliary Imaging Today K21.9 - Gastro-esophageal reflux disease without esophagitis, R10.9 - Unspecified abdominal pain IgG Subclasses Today K21.9 - Gastro-esophageal reflux disease without esophagitis, R10.9 - Unspecified abdominal pain Thyroid Stim Hormone (TSH) Today K21.9 - Gastro-esophageal reflux disease without esophagitis, R10.9 - Unspecified abdominal pain T4 Free Direct Today K21.9 - Gastro-esophageal reflux disease without esophagitis, R10.9 - Unspecified abdominal pain Free T3 Today K21.9 - Gastro-esophageal reflux disease without esophagitis, R10.9 - Unspecified abdominal pain Vitamin B12 Today K21.9 - Gastro-esophageal reflux disease without esophagitis, R10.9 - Unspecified abdominal pain CRP Today K21.9 - Gastro-esophageal reflux disease without esophagitis, R10.9 - Unspecified abdominal pain Erythrocyte Sed Rate Today K21.9 - Gastro-esophageal reflux disease without esophagitis, R10.9 - Unspecified abdominal pain Immunoglobulins G/A/M/E Today K21.9 - Gastro-esophageal reflux disease without esophagitis, R10.9 - Unspecified abdominal pain Gastrin, Serum Today K21.9 - Gastro-esophageal reflux disease without esophagitis, R10.9 - Unspecified abdominal pain TANYA + Protein Elect, Serum Today K21.9 - Gastro-esophageal reflux disease without esophagitis, R10.9 - Unspecified abdominal pain Anti-Parietal Cell AB, QN Today K21.9 - Gastro-esophageal reflux disease without esophagitis, R10.9 - Unspecified abdominal pain Intrinsic Factor Ab Today K21.9 - Gastro-esophageal reflux disease without esophagitis, R10.9 - Unspecified abdominal pain I have examined the patient and the H&P has been reviewed. There are no clinical changes since date of exam.
[2023-08-04 07:27] VITALS: BP 123/70; BP 95/60; PULSE 67; RESP 16; TEMP 36.6; O2SAT 96
[2023-08-04 07:30] VITALS: BP 123/70; BP 97/59; PULSE 74; RESP 16; O2SAT 96
[2023-08-04 07:35] VITALS: BP 123/70; BP 99/59; PULSE 58; RESP 16; O2SAT 96
--- NOTE | 2023-08-04 07:36 | OP.EGD_ITS ---
Patient Name: Yoshi Castillo Procedure Date: 08/04/2023 7:04 AM Date of : 1990 Age: 32 Procedure: Upper GI endoscopy Indications: Functional Dyspepsia, Heartburn Providers: Aman Arredodno DO Medicines: Monitored Anesthesia Care Patient Profile: This is a 32 year old female. Refer to note in patient chart for documentation of history and physical. Patient has symptoms of chronic heartburn. Complications: No immediate complications. Procedure: Pre-Anesthesia Assessment: - Prior to the procedure, a History and Physical was performed, and patient medications and allergies were reviewed. The patient is competent. The risks and benefits of the procedure and the sedation options and risks were discussed with the patient. All questions were answered and informed consent was obtained. Patient identification and proposed procedure were verified by the physician in the pre-procedure area. Mental Status Examination: alert and oriented. Airway Examination: normal oropharyngeal airway and neck mobility. Respiratory Examination: clear to auscultation. CV Examination: normal. Prophylactic Antibiotics: The patient does not require prophylactic antibiotics. Prior Anticoagulants: The patient has taken no anticoagulant or antiplatelet agents. ASA Grade Assessment: II - A patient with mild systemic disease. After reviewing the risks and benefits, the patient was deemed in satisfactory condition to undergo the procedure. The anesthesia plan was to use monitored anesthesia care (MAC). Immediately prior to administration of medications, the patient was re-assessed for adequacy to receive sedatives. The heart rate, respiratory rate, oxygen saturations, blood pressure, adequacy of pulmonary ventilation, and response to care were monitored throughout the procedure. The physical status of the patient was re-assessed after the procedure. After obtaining informed consent, the endoscope was passed under direct vision. Throughout the procedure, the patient's blood pressure, pulse, and oxygen saturations were monitored continuously. The gastroscope was introduced through the mouth, and advanced to the second part of duodenum. The upper GI endoscopy was accomplished without difficulty. The patient tolerated the procedure well. Scope In: 7:13:11 AM Scope Out: 7:21:10 AM Total Procedure Duration Time 0 hours 7 minutes 59 seconds Findings: The examined esophagus was normal. The DECKER capsule with delivery system was introduced through the mouth and advanced into the esophagus, such that the DECKER pH capsule was positioned 35 cm from the incisors, which was 6 cm proximal to the GE junction. Suction was applied to the well of the DECKER pH capsule to suck in the adjacent mucosa of the esophagus using the external vacuum pump set at a minimum vacuum pressure of 550 mmHg for 30 seconds. The DECKER pH capsule was then deployed by depressing the plunger on top of the handle to advance the locking pin into the mucosa, thereby attaching the capsule to the esophagus. The plunger was then rotated a quarter turn clockwise to release the capsule from the delivery system. The delivery system was then withdrawn. Endoscopy was utilized for probe placement and diagnostic evaluation. Patchy mildly erythematous mucosa without bleeding was found in the gastric antrum. Biopsies were taken with a cold forceps for histology. Verification of patient identification for the specimen was done. Estimated blood loss was minimal. Biopsies were taken with a cold forceps for Helicobacter pylori testing. Verification of patient identification for the specimen was done. Estimated blood loss was minimal. The first portion of the duodenum was normal. Impression: - Normal esophagus. - Erythematous mucosa in the antrum. Biopsied. - Normal first portion of the duodenum. - The DECKER pH capsule was positioned 35 cm from the incisors, which was 6 cm proximal to the GE junction. Recommendation: - Discharge patient to home. - Resume previous diet. - Continue present medications. - Await pathology results. Procedure Code(s): --- Professional --- 54378, Esophagogastroduodenoscopy, flexible, transoral; with biopsy, single or multiple CPT copyright 2021 [employer]. All rights reserved. The codes documented in this report are preliminary and upon life skills coordinator review may be revised to meet current compliance requirements. Aman Arredondo DO 08/04/2023 7:36:16 AM This report has been signed electronically. Number of Addenda: 0 Note Initiated On: 08/04/2023 7:04 AM
--- NOTE | 2023-08-04 07:37 | OP.CCLET_ITS ---
08/04/2023 Donald Barlow Re : Upper GI endoscopy procedure for Yoshi Castillo Dear [place] This procedure was performed on Friday, August 04, 2023. My impressions and recommendations are as follows: Impressions : - Normal esophagus. - Erythematous mucosa in the antrum. Biopsied. - Normal first portion of the duodenum. - The DECKER pH capsule was positioned 35 cm from the incisors, which was 6 cm proximal to the GE junction. Recommendations : - Discharge patient to home. - Resume previous diet. - Continue present medications. - Await pathology results. My findings are described in the full procedure note, which is enclosed. If I can be of further assistance, please feel free to contact me at . Sincerely, Aman Arredondo, 08/04/2023 7:36:16 AM This report has been signed electronically.
[2023-08-04 07:40] VITALS: BP 100/63; BP 123/70; PULSE 67; RESP 16; TEMP 36.5; O2SAT 98
[2023-08-04 07:52] VITALS: BP 123/70
[2023-08-04 09:18] LABS: Erythrocyte Sedimentation Rate 5 mm/hr (0-30)
[2023-08-04 09:43] LABS: CRP < 2.90 mg/L (0.0-3.0); Free T3 2.9 pg/mL (2.18-3.98); T4 Free Direct 1.13 ng/dL (0.76-1.46)
[2023-08-04 10:18] LABS: Vitamin B12 429 pg/mL (211-911)
[2023-08-10 16:10] LABS: Albumin 4.1 g/dL (2.9-4.4); Alpha-1-Globulins 0.2 g/dL (0.0-0.4); Alpha-2-Globulins 0.6 g/dL (0.4-1.0); Anti-Parietal Cell AB, QN 19.9 Units (0.0-20.0); Endomysial Antibody IgA Negative (Negative); Gamma Globulin 1.1 g/dL (0.4-1.8); Gastrin, Serum 41 pg/mL (0-115); IgG, Quant 1143 mg/dL (586-1602); Immunoglobulin A 91 mg/dL (87-352); Immunoglobulin E 4 IU/mL (6-495); Immunoglobulin G, Subclass 1 780 mg/dL (248-810); Immunoglobulin G, Subclass 2 175 mg/dL (130-555); Immunoglobulin G, Subclass 3 57 mg/dL (15-102); Immunoglobulin G, Subclass 4 26 mg/dL (2-96); Immunoglobulin M 93 mg/dL (26-217); Intrinsic Factor Ab 1.1 AU/mL (0.0-1.1); PROEL- TOTAL PROTEIN 6.8 g/dL (6.0-8.5); t-Transglutaminase IgA <2 U/mL (0-3)
== END 2023-08-04 08:09 | disposition home or self-care (01) ==
LOC: EN 05:47 → AC 05:48
PROVIDERS: Anesthesiology; PCP Family Medicine; Referring Provider Family Medicine; Visit Provider Internal Medicine Gastroenterology
PROC: (CPT 43235; principal; 2023-08-04 06:55)
DX: K29.50 Unspecified chronic gastritis without bleeding (principal); R10.84 Generalized abdominal pain; K30 Functional dyspepsia; K21.9 Gastro-esophageal reflux disease without esophagitis
CPT/HCPCS: 43239; 36415; 81025; 82533; 82607; 82784; 82785; 82787; 82941; 83516; 84165; 84439; 84443; 84481; 85652; 86140; 86255; 86334; 86340; 88305; 88342; J7120; J2405